=== PATIENT | male | born 1945 | race Caucasian/White ===

== ENCOUNTER 2016-06-06 14:40 | Inpatient (IN) | payer MEDICARE, OTHER ==
--- NOTE | 2016-06-06 15:31 | EDM.PDOC ---
ED HPI GENERAL MEDICAL PROBLEM - General Chief Complaint: General Stated Complaint: fever, weakness Time Seen by Provider: 06/06/16 14:50 Source of Information: Reports: Patient, Family History Limitations: Reports: No limitations - History of Present Illness INITIAL COMMENTS - FREE TEXT/NARRATIVE: Patient has had 24 hours of fevers and weakness. No pain, cough, n/v, d/c, urinary c/o. 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 Denies: confusion, chest pain, cough, cough w sputum, diaphoresis, loss of appetite, nausea/vomiting, rash, shortness of breath, syncope Headache Pain Score (Numeric/FACES): 7 - Related Data Allergies Allergy/AdvReac Type Severity Reaction Status Date / Time erythromycin base Allergy Cannot Verified 06/06/16 14:41 Remember morphine Allergy Tremors Verified 06/06/16 14:41 Home Meds: Home Meds ARIPiprazole [Abilify] 15 mg PO DAILY 06/06/16 [History] Alfuzosin [Uroxatral] 10 mg PO DAILY 06/06/16 [History] Baclofen [Lioresal] 10 mg PO TID PRN 06/06/16 [History] Escitalopram [Lexapro] 1 tab PO DAILY 06/06/16 [History] Fenofibrate Nanocrystallized [Tricor] 1 tab PO DAILY 06/06/16 [History] Hydrocodone/Acetaminophen [Hydrocodon-Acetaminophen 5-325] 1 - 2 tab PO Q4H PRN 06/06/16 [History] Lidocaine/Prilocaine [EMLA Crm] 1 dose TOP ASDIRECTED PRN 06/06/16 [History] Nitroglycerin [Nitrostat] 1 tab SL ASDIRECTED PRN 06/06/16 [History] Ondansetron HCl [Ondansetron] 8 mg PO TID PRN 06/06/16 [History] Prochlorperazine Maleate [Compazine] 10 mg PO QID PRN 06/06/16 [History] RX: Aspirin [Adult Low Dose Aspirin EC] 2 tab PO DAILY 06/06/16 [History] RX: Clopidogrel [Plavix] 75 mg PO DAILY 06/06/16 [History] RX: Nebivolol [Bystolic] 2.5 mg PO DAILY 06/06/16 [History] RX: Omeprazole 20 mg PO BEDTIME 06/06/16 [History] RX: Potassium Chloride 20 meq PO TID 06/06/16 [History] RX: fentaNYL [Duragesic] 50 mcg TRDERM Q72H 06/06/16 [History] RX: traMADol [Ultram] 1 - 2 tab PO Q4H PRN 06/06/16 [History] Sennosides/Docusate Sodium [Senokot-S Tablet] 1 tab PO BID 06/06/16 [History] Triamcinolone Acetonide [Triamcinolone Acetonide 0.1% Crm] 1 dose TOP BID [History] Triamterene/Hydrochlorothiazid [Maxzide 75 mg-50 mg Tablet] 0.5 mg PO DAILY [History] atorvaSTATin [Lipitor] 20 mg PO BEDTIME 06/06/16 [History] rOPINIRole HCl [Requip] 4 mg PO BEDTIME 06/06/16 [History] Past Medical History Oncologic (Cancer) History: Reports: Lymphoma - Past Surgical History Oncologic Surgical History: Reports: Lumpectomy Social & Family History - Tobacco Use Smoking Status *Q: Former Smoker Years of Tobacco use: 20 Packs/Tins Daily: 2 Month Tobacco Last Used: Quit many years ago Second Hand Smoke Exposure: No - Caffeine Use Caffeine Use: Reports: Coffee, Soda - Recreational Drug Use Recreational Drug Use: No ED ROS GENERAL - Review of Systems Review Of Systems: ROS reveals no pertinent complaints other than HPI. ED EXAM, GENERAL - Physical Exam Exam: See Below Exam Limited By: No limitations General Appearance: alert, WD/WN, no apparent distress Eye Exam: bilateral eye: EOMI, PERRL Ears: normal external exam, normal canal, normal TMs, hearing loss (on right ( baseline)) Ear Exam: bilateral ear: TM normal Nose: normal inspection, normal mucosa, no blood Throat/Mouth: Normal inspection, Normal oropharynx, No airway compromise Head: atraumatic, normocephalic Neck: normal inspection, supple, non-tender, full range of motion. No: lymphadenopathy (L), lymphadenopathy (R) Respiratory/Chest: no respiratory distress, lungs clear, no accessory muscle use Cardiovascular: normal peripheral pulses, regular rate, rhythm, no edema, no murmur, other (Port-a-cath present) Peripheral Pulses: 4+: dorsalis pedis (L), dorsalis pedis (R) GI/Abdominal: soft, non tender, no organomegaly, no abnormal bruit Back Exam: normal inspection, full range of motion. No: CVA tenderness (L), CVA tenderness (R) Extremities: normal inspection, normal range of motion, non-tender, no pedal edema, normal capillary refill Neurological: alert, oriented, CN II-XII intact, normal cognition, normal gait, no motor/sensory deficits Psychiatric: normal affect, normal mood Skin Exam: Warm, Dry, Intact, Normal color, No rash. No: Diaphoretic, Ecchymosis Course - Vital Signs Last Recorded V/S: Last Vital Signs Temp 39.2 C H 06/06/16 14:46 Pulse 100 06/06/16 14:46 Resp 18 06/06/16 14:46 BP 152/67 H 06/06/16 14:46 Pulse Ox 100 06/06/16 14:46 - Orders/Labs/Meds Orders: Active Orders 24 hr Category Date Time Status Chest 2V [CR] Stat Exams 06/06/16 15:21 Taken CULTURE BLOOD [BC] Stat Lab 06/06/16 15:22 Ordered CULTURE BLOOD [BC] Stat Lab 06/06/16 15:45 Received INFLUENZA A+B AG SCREEN [RM] Stat Lab 06/06/16 15:21 Ordered LACTIC ACID [CHEM] Stat Lab 06/06/16 15:21 Ordered UA W/MICROSCOPIC [URIN] Stat Lab 06/06/16 15:38 Ordered Blood Culture x2 Reflex Set [OM.PC] Stat Oth 06/06/16 15:21 Ordered Labs: Laboratory Tests 06/06/16 06/06/16 Range/Units 15:10 15:21 WBC 11.5 H (4.0-10.2) K/uL RBC 3.21 L (4.33-5.41) M/uL Hgb 9.6 L (13.1-16.8) g/dL Hct 29.4 L (39.0-49.0) % MCV 91.6 (84.0-98.0) fL MCH 29.9 (28.2-33.3) pg MCHC 32.7 (31.7-36.0) g/dL RDW 13.8 (11.2-14.1) % Plt Count 184 (150-350) K/uL Neut % (Auto) 85.8 H (45.0-80.0) % Lymph % (Auto) 5.4 L (10.0-50.0) % [place] % (Auto) 8.2 (2.0-14.0) % Eos % (Auto) 0.2 (0.0-5.0) % Baso % (Auto) 0.4 (0.0-2.0) % Neut # 9.89 H (1.40-7.00) K/uL Lymph # 0.62 (0.50-3.50) K/uL [place] # 0.95 (0.00-1.00) K/uL Eos # 0.02 (0.00-0.50) K/uL Baso # 0.05 (0.00-0.20) K/uL Sodium 134 L (136-145) mmol/L Potassium 3.3 L (3.5-5.1) mmol/L Chloride 99 (98-107) mmol/L Carbon Dioxide 24.9 (21.0-32.0) mmol/L BUN 16 (7-18) mg/dL Creatinine 1.34 H (0.51-1.17) mg/dL Est Cr Clr Drug Dosing TNP Estimated GFR (MDRD) 53 mL/min Glucose 143 H (74-106) mg/dL Calcium 8.7 (8.5-10.1) mg/dL Total Bilirubin 0.5 (0.2-1.0) mg/dL AST 10 L (15-37) U/L ALT 17 (12-78) U/L Alkaline Phosphatase 53 (46-116) IU/L Total Protein 6.8 (6.4-8.2) g/dL Albumin 3.1 L (3.4-5.0) g/dL Departure - Departure Time of Disposition: 15:51 Disposition: Admitted As Inpatient 68 Condition: fair Clinical Impression: Pneumonia Forms: ED Department Discharge - Problem List Review Problem List Initiated/Reviewed/Updated: No - My Orders Last 24 Hours: My Active Orders 06/06/16 15:21 Chest 2V [CR] Stat INFLUENZA A+B AG SCREEN [RM] Stat LACTIC ACID [CHEM] Stat Blood Culture x2 Reflex Set [OM.PC] Stat 06/06/16 15:22 CULTURE BLOOD [BC] Stat 06/06/16 15:38 UA W/MICROSCOPIC [URIN] Stat 06/06/16 15:45 CULTURE BLOOD [BC] Stat - Assessment/Plan Last 24 Hours: My Active Orders 06/06/16 15:21 Chest 2V [CR] Stat INFLUENZA A+B AG SCREEN [RM] Stat LACTIC ACID [CHEM] Stat Blood Culture x2 Reflex Set [OM.PC] Stat 06/06/16 15:22 CULTURE BLOOD [BC] Stat 06/06/16 15:38 UA W/MICROSCOPIC [URIN] Stat 06/06/16 15:45 CULTURE BLOOD [BC] Stat Assessment:: Right Upper lobe Pneumonia Recent completion of Chemotherapy Stable VS Plan: Admit as inpatient IV antibiotics Supportive care
[2016-06-06 15:42] LABS: CHLORIDE,CL 99 mmol/L (98-107); SODIUM,NA 134 mmol/L (136-145)
[2016-06-06] MEDS ORDERED: Cefepime 2 GM in Sodium Chloride 0.9% 100 ML IV SCH (16:07)
[2016-06-06] MEDS: Cefepime 2 GM in Sodium Chloride 0.9% 100 ML IV SCH (16:18)
[2016-06-06] MEDS ORDERED: Acetaminophen 325 MG Tab PO PRN (17:01)
[2016-06-06] MEDS ORDERED: Prochlorperazine 5 MG Tab PO PRN (17:55)
[2016-06-06] MEDS ORDERED: Ondansetron 4 MG Tab.DIS PO PRN (17:55)
[2016-06-06] MEDS ORDERED: Lidocaine/Prilocaine 2.5-2.5% Crm 5 GM Tube TOP PRN (17:55)
[2016-06-06] MEDS ORDERED: traMADol 50 MG Tab PO PRN (17:55)
[2016-06-06] MEDS ORDERED: Acetaminophen/HYDROcodone 325-5 MG Tab PO PRN (17:55)
[2016-06-06] MEDS ORDERED: Baclofen 10 MG Tab PO PRN (17:55)
[2016-06-06] MEDS ORDERED: Nitroglycerin 0.4 MG Tab.SL SL PRN (17:55)
[2016-06-06] MEDS: Sodium Chloride 0.9% 1,000 ML IV SCH (19:14)
[2016-06-06] MEDS: Potassium Chloride 20 MEQ Tab.ER PO SCH (19:15)
[2016-06-06] MEDS: Omeprazole 20 MG Cap.CR PO SCH (19:15)
[2016-06-06] MEDS: rOPINIRole 1 MG Tab PO SCH (19:15)
[2016-06-06] MEDS: Triamcinolone Acetonide 0.1% Crm 15 GM Tube TOP SCH (19:19)
[2016-06-07] MEDS ORDERED: Cefepime 2 GM in Sodium Chloride 0.9% 100 ML IV SCH ×2
[2016-06-07] MEDS: Cefepime 2 GM in Sodium Chloride 0.9% 100 ML IV SCH ×3 (00:38→16:48)
[2016-06-07] MEDS: Sodium Chloride 0.9% 1,000 ML IV SCH ×3 (02:24→16:24)
[2016-06-07] MEDS: Acetaminophen 325 MG Tab PO PRN ×3 (04:27→20:17)
[2016-06-07] MEDS: Aspirin 81 MG Tab.EC PO SCH (08:18)
[2016-06-07] MEDS: Clopidogrel 75 MG Tab PO SCH (08:18)
[2016-06-07] MEDS: ARIPiprazole 10 MG Tab PO SCH (08:18)
[2016-06-07] MEDS: Alfuzosin 10 MG Tab.ER PO SCH (08:18)
[2016-06-07] MEDS: Potassium Chloride 20 MEQ Tab.ER PO SCH ×3 (08:18→17:42)
[2016-06-07] MEDS: Fenofibrate Nanocrystallized 145 MG Tab PO SCH (08:18)
[2016-06-07] MEDS: Escitalopram 20 MG Tab PO SCH (08:18)
[2016-06-07] MEDS: Triamcinolone Acetonide 0.1% Crm 15 GM Tube TOP SCH ×2 (08:19→18:28)
[2016-06-07] MEDS: Hydrochlorothiazide/Triamterene 50-75 MG Tab PO SCH (08:19)
--- NOTE | 2016-06-07 16:55 | PCM.PN ---
- General Info Date of Service: 06/07/16 Admission Dx/Problem (Free Text): Admitted 06/06 for right upper lobe pneumonia with profound weakness. 2 weeks s/ p last dose of chemotherapy Functional Status: Reports: pain controlled, tolerating diet, ambulating (Able to walk on own today) - Review of Systems General: Reports: No Symptoms, Weakness (improved). Denies: Fever, Chills HEENT: Reports: no symptoms Pulmonary: Reports: no symptoms Cardiovascular: Reports: No Symptoms Gastrointestinal: Reports: No symptoms Genitourinary: Reports: no symptoms Musculoskeletal: Reports: no symptoms Skin: Reports: no symptoms Neurological: Reports: No Symptoms Psychiatric: Reports: no symptoms - Patient Data Vitals - most recent: Last Vital Signs Temp 37.4 C 06/07/16 16:00 Pulse 84 06/07/16 16:00 Resp 18 06/07/16 16:00 BP 114/61 06/07/16 16:00 Pulse Ox 96 06/07/16 16:00 Weight - most recent: 86.409 kg I&O - last 24 hours: Intake & Output 06/07/16 06/07/16 06/07/16 06:59 14:59 22:59 Intake Total 1822 480 Output Total 750 575 Balance 1072 -95 Lab Results last 24 hrs: Laboratory Results - last 24 hr 06/07/16 06/07/16 Range/Units 06:55 06:55 WBC 10.8 H (4.0-10.2) K/uL RBC 3.10 L (4.33-5.41) M/uL Hgb 9.2 L (13.1-16.8) g/dL Hct 28.2 L (39.0-49.0) % MCV 91.0 (84.0-98.0) fL MCH 29.7 (28.2-33.3) pg MCHC 32.6 (31.7-36.0) g/dL RDW 13.7 (11.2-14.1) % Plt Count 205 (150-350) K/uL Neut % (Auto) 84.3 H (45.0-80.0) % Lymph % (Auto) 6.8 L (10.0-50.0) % [place] % (Auto) 8.1 (2.0-14.0) % Eos % (Auto) 0.3 (0.0-5.0) % Baso % (Auto) 0.5 (0.0-2.0) % Neut # 9.09 H (1.40-7.00) K/uL Lymph # 0.73 (0.50-3.50) K/uL [place] # 0.87 (0.00-1.00) K/uL Eos # 0.03 (0.00-0.50) K/uL Baso # 0.05 (0.00-0.20) K/uL Sodium 137 (136-145) mmol/L Potassium 3.4 L (3.5-5.1) mmol/L Chloride 101 (98-107) mmol/L Carbon Dioxide 25.0 (21.0-32.0) mmol/L BUN 15 (7-18) mg/dL Creatinine 1.23 H (0.51-1.17) mg/dL Est Cr Clr Drug Dosing 58.67 mL/min Estimated GFR (MDRD) 58 mL/min Glucose 104 (74-106) mg/dL Calcium 8.4 L (8.5-10.1) mg/dL Total Bilirubin 0.4 (0.2-1.0) mg/dL AST 10 L (15-37) U/L ALT 15 (12-78) U/L Alkaline Phosphatase 49 (46-116) IU/L Total Protein 6.5 (6.4-8.2) g/dL Albumin 2.8 L (3.4-5.0) g/dL Med Orders - Current: Current Medications Acetaminophen (Tylenol) 650 mg PO Q6H PRN PRN Reason: Temperature Last Admin: 06/07/16 11:40 Dose: 650 mg Acetaminophen/Hydrocodone Bitart ([place] 325-5 Mg) 1 tab PO Q4H PRN PRN Reason: Pain Last Admin: 06/06/16 20:04 Dose: 1 tab Alfuzosin HCl (Uroxatral) 10 mg PO DAILY [facility] Last Admin: 06/07/16 08:18 Dose: 10 mg Aripiprazole (Abilify) 15 mg PO DAILY [facility] Last Admin: 06/07/16 08:18 Dose: 15 mg Aspirin (Halfprin) 162 mg PO DAILY [facility] Last Admin: 06/07/16 08:18 Dose: 162 mg Baclofen (Lioresal) 10 mg PO TID PRN PRN Reason: Spasms Clopidogrel Bisulfate (Plavix) 75 mg PO DAILY [facility] Last Admin: 06/07/16 08:18 Dose: 75 mg Escitalopram Oxalate (Lexapro) 20 mg PO DAILY [facility] Last Admin: 06/07/16 08:18 Dose: 20 mg Fenofibrate (Tricor) 145 mg PO DAILY [facility] Last Admin: 06/07/16 08:18 Dose: 145 mg Fentanyl (Duragesic) 50 mcg TRDERM Q72H [facility] Cefepime HCl 2 gm/ Sodium (Chloride) 100 mls @ 200 mls/hr IV Q8HR [facility] Last Admin: 06/07/16 16:48 Dose: 200 mls/hr Sodium Chloride (Normal Saline) 1,000 mls @ 150 mls/hr IV ASDIRECTED [facility] Last Admin: 06/07/16 16:24 Dose: 150 mls/hr Lidocaine/Prilocaine (Emla Crm) 0 gm TOP ASDIRECTED PRN PRN Reason: PRIOR TO PORT ACCESS Nebivolol (Bystolic) 2.5 mg PO DAILY [facility] Last Admin: 06/07/16 08:18 Dose: 2.5 mg Nitroglycerin (Nitrostat) 0.4 mg SL ASDIRECTED PRN PRN Reason: Chest Pain Omeprazole (Omeprazole) 20 mg PO BEDTIME [facility] Last Admin: 06/06/16 19:15 Dose: 20 mg Ondansetron HCl (Zofran Odt) 8 mg PO TID PRN PRN Reason: Nausea Potassium Chloride (Klor-Con M20) 20 meq PO TID [facility] Last Admin: 06/07/16 11:41 Dose: 20 meq Prochlorperazine Maleate (Compazine) 10 mg PO QID PRN PRN Reason: Nausea Ropinirole HCl (Requip) 4 mg PO BEDTIME [facility] Last Admin: 06/06/16 19:15 Dose: 4 mg Senna/Docusate Sodium (Senna Plus) 1 tab PO BID [facility] Last Admin: 06/07/16 08:18 Dose: 1 tab Tramadol HCl (Ultram) 100 mg PO Q4H PRN PRN Reason: Pain Triamcinolone Acetonide (Triamcinolone Acetonide 0.1% Crm) 0 gm TOP BID [facility] Last Admin: 06/07/16 08:19 Dose: Not Given Triamterene/HCTZ (Maxzide 50-75 Mg) 0.5 each PO DAILY [facility] Last Admin: 06/07/16 08:19 Dose: 0.5 each Discontinued Medications Acetaminophen (Tylenol) 650 mg PO Q4H PRN PRN Reason: Fever/Pain Last Admin: 06/06/16 17:44 Dose: 650 mg Cefepime HCl 2 gm/ Sodium (Chloride) 100 mls @ 200 mls/hr IV Q8HR [facility] Cefepime HCl 2 gm/ Sodium (Chloride) 100 mls @ 200 mls/hr IV Q8HR [facility] - Exam General: alert, oriented HEENT: Pupils equal, EOMI Neck: supple Lungs: Clear to auscultation, Normal respiratory effort Cardiovascular: Regular Rate, Regular Rhythm Abdomen: soft, no tenderness, no distension Back Exam: normal inspection Extremities: no edema Skin: warm, dry, intact Neurological: no new focal deficit Psy/Mental Status: alert, normal affect, normal mood - Problem List Review Problem List Initiated/Reviewed/Updated: No - My Orders Last 24 Hours: My Active Orders 06/06/16 16:13 Resuscitation Status Routine 06/06/16 16:16 Cefepime [Maxipime] 2 gm Sodium Chloride 0.9% [Normal Saline] 100 ml IV Q8HR 06/06/16 16:43 Antiembolic Devices [RC] 08,20 Antiembolic Hose [OM.PC] Routine 06/06/16 16:44 Up With Assistance [RC] ASDIRECTED 06/06/16 17:55 Intake and Output [RC] QSHIFT Up With Assistance [RC] ASDIRECTED Up to Chair [RC] ASDIRECTED Vital Signs [RC] Q4HR Acetaminophen [Tylenol] 650 mg PO Q6H PRN Acetaminophen/HYDROcodone [[place] 325-5 MG] 1 tab PO Q4H PRN Baclofen [Lioresal] 10 mg PO TID PRN Lidocaine/Prilocaine [EMLA Crm] 0 gm TOP ASDIRECTED PRN Nitroglycerin [Nitrostat] 0.4 mg SL ASDIRECTED PRN Ondansetron [Zofran ODT] 8 mg PO TID PRN Prochlorperazine [Compazine] 10 mg PO QID PRN Sodium Chloride 0.9% [Normal Saline] 1,000 ml IV ASDIRECTED traMADol [Ultram] 100 mg PO Q4H PRN 06/06/16 18:00 Docusate Sodium/Sennosides [Senna Plus] 1 tab PO BID Potassium Chloride [Klor-Con M20] 20 meq PO TID Triamcinolone Acetonide [Triamcinolone Acetonide 0.1% Crm] 0 gm TOP BID 06/06/16 20:00 Omeprazole 20 mg PO BEDTIME rOPINIRole [Requip] 4 mg PO BEDTIME 06/06/16 Dinner Regular Diet [DIET] Regular Diet [DIET] 06/07/16 08:00 ARIPiprazole [Abilify] 15 mg PO DAILY Alfuzosin [Uroxatral] 10 mg PO DAILY Aspirin [Halfprin] 162 mg PO DAILY Clopidogrel [Plavix] 75 mg PO DAILY Escitalopram [Lexapro] 20 mg PO DAILY Fenofibrate Nanocrystallized [Tricor] 145 mg PO DAILY HCTZ/Triamterene [Maxzide 50-75 MG] 0.5 each PO DAILY Nebivolol [Bystolic] 2.5 mg PO DAILY 06/07/16 20:00 fentaNYL [Duragesic] 50 mcg TRDERM Q72H 06/08/16 07:00 CBC WITH AUTO DIFF [HEME] DAILY CMP [COMPREHENSIVE METABOLIC PN,CMP] [CHEM] DAILY 06/09/16 07:00 CBC WITH AUTO DIFF [HEME] DAILY CMP [COMPREHENSIVE METABOLIC PN,CMP] [CHEM] DAILY - Assessment Assessment:: Pneumonia - Weakness improved, WBC and differential improved, no fevers today. Cult neg at day 1 - Plan Plan:: 1. Continue current care, step down VS frequency, change fluids to maintenance 2. Anticipate d/c in 2 days.
[2016-06-07] MEDS: D5 1/2 NS w/ 20 mEq/L KCl 1,000 ML IV SCH (17:43)
[2016-06-07] MEDS ORDERED: fentaNYL 50 MCG/HR Transdermal Patch TRDERM SCH (20:00)
[2016-06-07] MEDS: Temazepam 15 MG Cap PO PRN (20:18)
[2016-06-07] MEDS: rOPINIRole 1 MG Tab PO SCH (20:18)
[2016-06-07] MEDS: Omeprazole 20 MG Cap.CR PO SCH (20:18)
[2016-06-08] MEDS: Cefepime 2 GM in Sodium Chloride 0.9% 100 ML IV SCH ×4 (00:54→23:16)
[2016-06-08] MEDS: D5 1/2 NS w/ 20 mEq/L KCl 1,000 ML IV SCH ×2 (07:03→17:38)
[2016-06-08 07:52] LABS: CHLORIDE,CL 104 mmol/L (98-107); SODIUM,NA 137 mmol/L (136-145)
[2016-06-08] MEDS: Clopidogrel 75 MG Tab PO SCH (08:24)
[2016-06-08] MEDS: ARIPiprazole 10 MG Tab PO SCH (08:24)
[2016-06-08] MEDS: Potassium Chloride 20 MEQ Tab.ER PO SCH ×3 (08:25→17:38)
[2016-06-08] MEDS: Aspirin 81 MG Tab.EC PO SCH (08:25)
[2016-06-08] MEDS: Alfuzosin 10 MG Tab.ER PO SCH (08:26)
[2016-06-08] MEDS: Escitalopram 20 MG Tab PO SCH (08:27)
[2016-06-08] MEDS: Hydrochlorothiazide/Triamterene 50-75 MG Tab PO SCH (08:27)
[2016-06-08] MEDS: Fenofibrate Nanocrystallized 145 MG Tab PO SCH (08:27)
[2016-06-08] MEDS: Triamcinolone Acetonide 0.1% Crm 15 GM Tube TOP SCH ×2 (08:30→17:42)
[2016-06-08] MEDS: Acetaminophen 325 MG Tab PO PRN ×2 (12:02→23:21)
[2016-06-08] MEDS ORDERED: Cyanocobalamin (Vitamin B12) 1,000 MCG/ML SDV IM ONE ×2 (12:39→16:00)
--- NOTE | 2016-06-08 12:45 | PCM.PN ---
- General Info Date of Service: 06/08/16 Admission Dx/Problem (Free Text): Admitted 06/06 for right upper lobe pneumonia with profound weakness. 2 weeks s/ p last dose of chemotherapy Functional Status: Reports: pain controlled - Review of Systems General: Reports: No Symptoms (weakness resolved) HEENT: Reports: no symptoms Pulmonary: Reports: no symptoms Cardiovascular: Reports: No Symptoms Gastrointestinal: Reports: No symptoms Genitourinary: Reports: no symptoms Musculoskeletal: Reports: no symptoms Skin: Reports: no symptoms Neurological: Reports: No Symptoms Psychiatric: Reports: no symptoms - Patient Data Vitals - most recent: Last Vital Signs Temp 36.8 C 06/08/16 08:00 Pulse 89 06/08/16 08:26 Resp 18 06/08/16 08:00 BP 118/71 06/08/16 08:26 Pulse Ox 97 06/08/16 08:00 Weight - most recent: 86.409 kg I&O - last 24 hours: Intake & Output 06/07/16 06/08/16 06/08/16 22:59 06:59 14:59 Intake Total 480 2671 220 Balance 480 2671 220 Lab Results last 24 hrs: Laboratory Results - last 24 hr 06/08/16 06/08/16 Range/Units 07:15 07:15 WBC 6.4 (4.0-10.2) K/uL RBC 2.85 L (4.33-5.41) M/uL Hgb 8.4 L (13.1-16.8) g/dL Hct 25.9 L (39.0-49.0) % MCV 90.9 (84.0-98.0) fL MCH 29.5 (28.2-33.3) pg MCHC 32.4 (31.7-36.0) g/dL RDW 13.5 (11.2-14.1) % Plt Count 228 (150-350) K/uL Neut % (Auto) 73.6 (45.0-80.0) % Lymph % (Auto) 12.1 (10.0-50.0) % [place] % (Auto) 11.2 (2.0-14.0) % Eos % (Auto) 2.2 (0.0-5.0) % Baso % (Auto) 0.9 (0.0-2.0) % Neut # (Auto) 4.74 (1.40-7.00) K/uL Lymph # (Auto) 0.78 (0.50-3.50) K/uL [place] # (Auto) 0.72 (0.00-1.00) K/uL Eos # (Auto) 0.14 (0.00-0.50) K/uL Baso # (Auto) 0.06 (0.00-0.20) K/uL Sodium 137 (136-145) mmol/L Potassium 3.7 (3.5-5.1) mmol/L Chloride 104 (98-107) mmol/L Carbon Dioxide 25.0 (21.0-32.0) mmol/L BUN 13 (7-18) mg/dL Creatinine 1.09 (0.51-1.17) mg/dL Est Cr Clr Drug Dosing 66.20 mL/min Estimated GFR (MDRD) > 60 mL/min Glucose 105 (74-106) mg/dL Calcium 8.6 (8.5-10.1) mg/dL Total Bilirubin 0.2 (0.2-1.0) mg/dL AST 15 (15-37) U/L ALT 18 (12-78) U/L Alkaline Phosphatase 39 L (46-116) IU/L Total Protein 6.2 L (6.4-8.2) g/dL Albumin 2.5 L (3.4-5.0) g/dL Med Orders - Current: Current Medications Acetaminophen (Tylenol) 650 mg PO Q6H PRN PRN Reason: Temperature Last Admin: 06/08/16 12:02 Dose: 650 mg Acetaminophen/Hydrocodone Bitart ([place] 325-5 Mg) 1 tab PO Q4H PRN PRN Reason: Pain Last Admin: 06/06/16 20:04 Dose: 1 tab Alfuzosin HCl (Uroxatral) 10 mg PO DAILY [facility] Last Admin: 06/08/16 08:26 Dose: 10 mg Aripiprazole (Abilify) 15 mg PO DAILY [facility] Last Admin: 06/08/16 08:24 Dose: 15 mg Aspirin (Halfprin) 162 mg PO DAILY [facility] Last Admin: 06/08/16 08:25 Dose: 162 mg Baclofen (Lioresal) 10 mg PO TID PRN PRN Reason: Spasms Clopidogrel Bisulfate (Plavix) 75 mg PO DAILY [facility] Last Admin: 06/08/16 08:24 Dose: 75 mg Cyanocobalamin (Vitamin B12) 1,000 mcg IM ONETIME ONE Stop: 06/08/16 12:40 Escitalopram Oxalate (Lexapro) 20 mg PO DAILY [facility] Last Admin: 06/08/16 08:27 Dose: 20 mg Fenofibrate (Tricor) 145 mg PO DAILY [facility] Last Admin: 06/08/16 08:27 Dose: 145 mg Fentanyl (Duragesic) 50 mcg TRDERM Q72H [facility] Last Admin: 06/07/16 20:20 Dose: 50 mcg Cefepime HCl 2 gm/ Sodium (Chloride) 100 mls @ 200 mls/hr IV Q8HR [facility] Last Admin: 06/08/16 08:22 Dose: 200 mls/hr Potassium Chloride/Dextrose/Sod Cl (D5 1/2 Ns W/ 20 Meq/L Kcl) 1,000 mls @ 75 mls/hr IV ASDIRECTED [facility] Last Admin: 06/08/16 07:03 Dose: 75 mls/hr Lidocaine/Prilocaine (Emla Crm) 0 gm TOP ASDIRECTED PRN PRN Reason: PRIOR TO PORT ACCESS Nebivolol (Bystolic) 2.5 mg PO DAILY [facility] Last Admin: 06/08/16 08:26 Dose: 2.5 mg Nitroglycerin (Nitrostat) 0.4 mg SL ASDIRECTED PRN PRN Reason: Chest Pain Omeprazole (Omeprazole) 20 mg PO BEDTIME [facility] Last Admin: 06/07/16 20:18 Dose: 20 mg Ondansetron HCl (Zofran Odt) 8 mg PO TID PRN PRN Reason: Nausea Potassium Chloride (Klor-Con M20) 20 meq PO TID [facility] Last Admin: 06/08/16 11:57 Dose: 20 meq Prochlorperazine Maleate (Compazine) 10 mg PO QID PRN PRN Reason: Nausea Ropinirole HCl (Requip) 4 mg PO BEDTIME [facility] Last Admin: 06/07/16 20:18 Dose: 4 mg Senna/Docusate Sodium (Senna Plus) 1 tab PO BID [facility] Last Admin: 06/08/16 08:25 Dose: 1 tab Temazepam (Restoril) 15 mg PO BEDTIME PRN PRN Reason: Insomnia Last Admin: 06/07/16 20:18 Dose: 15 mg Tramadol HCl (Ultram) 100 mg PO Q4H PRN PRN Reason: Pain Triamcinolone Acetonide (Triamcinolone Acetonide 0.1% Crm) 0 gm TOP BID [facility] Last Admin: 06/08/16 08:30 Dose: Not Given Triamterene/HCTZ (Maxzide 50-75 Mg) 0.5 each PO DAILY [facility] Last Admin: 06/08/16 08:27 Dose: 0.5 each Discontinued Medications Acetaminophen (Tylenol) 650 mg PO Q4H PRN PRN Reason: Fever/Pain Last Admin: 06/06/16 17:44 Dose: 650 mg Cefepime HCl 2 gm/ Sodium (Chloride) 100 mls @ 200 mls/hr IV Q8HR [facility] Cefepime HCl 2 gm/ Sodium (Chloride) 100 mls @ 200 mls/hr IV Q8HR [facility] Sodium Chloride (Normal Saline) 1,000 mls @ 150 mls/hr IV ASDIRECTED [facility] Last Admin: 06/07/16 16:24 Dose: 150 mls/hr - Exam General: alert, oriented HEENT: Pupils equal, EOMI Neck: supple Lungs: Clear to auscultation, Normal respiratory effort Cardiovascular: Regular Rate, Regular Rhythm Abdomen: soft, no tenderness Back Exam: normal inspection Extremities: no edema Skin: warm, dry, intact Neurological: no new focal deficit Psy/Mental Status: alert, normal affect, normal mood - Problem List Review Problem List Initiated/Reviewed/Updated: No - My Orders Last 24 Hours: My Active Orders 06/07/16 17:00 Activity as Tolerated [RC] .Routine D5 1/2 NS w/ 20 mEq/L KCl 1,000 ml IV ASDIRECTED 06/07/16 18:01 Consult to Physical Therapy [PT Evaluation and Treatment] [CONS] Routine 06/07/16 18:03 Consult to Occupational Therapy [OT Evaluation and Treatment] [CONS] Routine 06/07/16 18:55 Temazepam [Restoril] 15 mg PO BEDTIME PRN 06/07/16 20:00 fentaNYL [Duragesic] 50 mcg TRDERM Q72H 06/08/16 12:39 Cyanocobalamin (Vitamin B12) [Vitamin B12] 1,000 mcg IM ONETIME ONE 06/09/16 07:00 CBC WITH AUTO DIFF [HEME] DAILY CMP [COMPREHENSIVE METABOLIC PN,CMP] [CHEM] DAILY IRON/TIBC [CHEM] Routine - Assessment Assessment:: Pneumonia - Weakness improved, WBC and differential improved, no fevers today. Cult neg at day 1 06/08/16 Pneumonia - Weakness resolved, WBC normal. One fever in 24 hours (1999 yesterday). Cult Neg Anemia - Hbg 8.4 this AM down from 9.6 on admission. NormoChromic Normocytic. - Plan Plan:: 1. Iron studies, B-12 IM shot today, recheck Hbg in AM 2. Possible D/C tomorrow if afebrile and Hgb is stable
[2016-06-08] MEDS: Omeprazole 20 MG Cap.CR PO SCH (19:58)
[2016-06-08] MEDS: rOPINIRole 1 MG Tab PO SCH (19:58)
[2016-06-08] MEDS: Temazepam 15 MG Cap PO PRN (20:02)
[2016-06-09] MEDS: D5 1/2 NS w/ 20 mEq/L KCl 1,000 ML IV SCH (06:28)
[2016-06-09 07:53] LABS: CHLORIDE,CL 107 mmol/L (98-107); SODIUM,NA 141 mmol/L (136-145)
[2016-06-09] MEDS: Cefepime 2 GM in Sodium Chloride 0.9% 100 ML IV SCH (08:17)
[2016-06-09] MEDS: ARIPiprazole 10 MG Tab PO SCH (08:18)
[2016-06-09] MEDS: Aspirin 81 MG Tab.EC PO SCH (08:18)
[2016-06-09] MEDS: Hydrochlorothiazide/Triamterene 50-75 MG Tab PO SCH (08:19)
[2016-06-09] MEDS: Clopidogrel 75 MG Tab PO SCH (08:20)
[2016-06-09] MEDS: Fenofibrate Nanocrystallized 145 MG Tab PO SCH (08:20)
[2016-06-09] MEDS: Escitalopram 20 MG Tab PO SCH (08:20)
[2016-06-09] MEDS: Alfuzosin 10 MG Tab.ER PO SCH (08:20)
[2016-06-09] MEDS: Potassium Chloride 20 MEQ Tab.ER PO SCH (08:21)
[2016-06-09] MEDS: Triamcinolone Acetonide 0.1% Crm 15 GM Tube TOP SCH ×2 (08:22→08:30)
[2016-06-09 08:23] VITALS: BP 120/71
--- NOTE | 2016-06-09 10:22 | PCM.DCSUM1 ---
Discharge Summary - Hospital Course HPI Initial Comments: Admitted 3 days ago with Pneumonia, profound weakness. - Discharge Data Discharge Date: 06/09/16 Discharge Disposition: Home, Self-Care 01 Condition: Good - Patient Summary/Data Consults: Consultations 06/07/16 18:01 Consult to Physical Therapy [PT Evaluation and Treatment] [CONS] Routine 06/07/16 18:03 Consult to Occupational Therapy [OT Evaluation and Treatment] [CONS] Routine Hospital Course: Improved rapidly. No complications. Weakness resolved. WBC normalized. Last fever two evenings ago. Hgb stable for last 24 hours - Discharge Plan Prescriptions/Med Rec: Cefprozil 500 mg PO BID #20 tablet Ferrous Sulfate [Slow Fe] 142 mg PO DAILY #30 tablet.er Levofloxacin [Levaquin] 500 mg PO Q24H #10 tablet Home Medications: Home Meds ARIPiprazole [Abilify] 15 mg PO DAILY 06/06/16 [History] Alfuzosin [Uroxatral] 10 mg PO DAILY 06/06/16 [History] Aspirin [Adult Low Dose Aspirin EC] 2 tab PO DAILY 06/06/16 [History] Baclofen [Lioresal] 10 mg PO TID PRN 06/06/16 [History] Clopidogrel [Plavix] 75 mg PO DAILY 06/06/16 [History] Escitalopram [Lexapro] 1 tab PO DAILY 06/06/16 [History] Fenofibrate Nanocrystallized [Tricor] 1 tab PO DAILY 06/06/16 [History] Hydrocodone/Acetaminophen [Hydrocodon-Acetaminophen 5-325] 1 - 2 tab PO Q4H PRN 06/06/16 [History] Lidocaine/Prilocaine [EMLA Crm] 1 dose TOP ASDIRECTED PRN 06/06/16 [History] Nebivolol [Bystolic] 2.5 mg PO DAILY 06/06/16 [History] Nitroglycerin [Nitrostat] 1 tab SL ASDIRECTED PRN 06/06/16 [History] Omeprazole 20 mg PO BEDTIME 06/06/16 [History] Ondansetron HCl [Ondansetron] 8 mg PO TID PRN 06/06/16 [History] Potassium Chloride 20 meq PO TID 06/06/16 [History] Prochlorperazine Maleate [Compazine] 10 mg PO QID PRN 06/06/16 [History] Sennosides/Docusate Sodium [Senokot-S Tablet] 1 tab PO BID 06/06/16 [History] Triamcinolone Acetonide [Triamcinolone Acetonide 0.1% Crm] 1 dose TOP BID [History] Triamterene/Hydrochlorothiazid [Maxzide 75 mg-50 mg Tablet] 0.5 mg PO DAILY [History] atorvaSTATin [Lipitor] 20 mg PO BEDTIME 06/06/16 [History] fentaNYL [Duragesic] 50 mcg TRDERM Q72H 06/06/16 [History] rOPINIRole HCl [Requip] 4 mg PO BEDTIME 06/06/16 [History] traMADol [Ultram] 1 - 2 tab PO Q4H PRN 06/06/16 [History] Cefprozil 500 mg PO BID #20 tablet 06/09/16 [Rx] Ferrous Sulfate [Slow Fe] 142 mg PO DAILY #30 tablet.er 06/09/16 [Rx] Levofloxacin [Levaquin] 500 mg PO Q24H #10 tablet 06/09/16 [Rx] Patient Handouts: Cefepime injection, Community-Acquired Pneumonia, Adult, Easy -to-Read Forms: ED Department Discharge Referrals: PCP,None [Primary Care Provider] - - Discharge Summary/Plan Comment DC Time >30 min.: Yes - General Info Date of Service: 06/09/16 Admission Dx/Problem (Free Text: Admitted 06/06 for right upper lobe pneumonia with profound weakness. 2 weeks s/ p last dose of chemotherapy Functional Status: Reports: pain controlled - Review of Systems General: Reports: No Symptoms HEENT: Reports: no symptoms Pulmonary: Reports: no symptoms Cardiovascular: Reports: No Symptoms Gastrointestinal: Reports: No symptoms Genitourinary: Reports: no symptoms Musculoskeletal: Reports: no symptoms Skin: Reports: no symptoms Neurological: Reports: No Symptoms Psychiatric: Reports: no symptoms - Patient Data Vitals - Most Recent: Last Vital Signs Temp 36.9 C 06/09/16 08:00 Pulse 84 06/09/16 08:21 Resp 18 06/09/16 08:00 BP 120/71 06/09/16 08:21 Pulse Ox 100 06/09/16 08:00 Weight - Most Recent: 86.409 kg I&O - Last 24 hours: Intake & Output 06/08/16 06/09/16 06/09/16 22:59 06:59 14:59 Intake Total 1304 963 Balance 1304 963 Lab Results - Last 24 hrs: Laboratory Results - last 24 hr 06/09/16 06/09/16 06/09/16 Range/Units 06:55 06:55 06:55 WBC 5.8 (4.0-10.2) K/uL RBC 2.96 L (4.33-5.41) M/uL Hgb 8.5 L (13.1-16.8) g/dL Hct 26.8 L (39.0-49.0) % MCV 90.5 (84.0-98.0) fL MCH 28.7 (28.2-33.3) pg MCHC 31.7 (31.7-36.0) g/dL RDW 13.2 (11.2-14.1) % Plt Count 281 (150-350) K/uL Neut % (Auto) 70.7 (45.0-80.0) % Lymph % (Auto) 16.0 (10.0-50.0) % [place] % (Auto) 9.4 (2.0-14.0) % Eos % (Auto) 2.3 (0.0-5.0) % Baso % (Auto) 1.6 (0.0-2.0) % Neut # (Auto) 4.08 (1.40-7.00) K/uL Lymph # (Auto) 0.92 (0.50-3.50) K/uL [place] # (Auto) 0.54 (0.00-1.00) K/uL Eos # (Auto) 0.13 (0.00-0.50) K/uL Baso # (Auto) 0.09 (0.00-0.20) K/uL Sodium 141 (136-145) mmol/L Potassium 4.2 (3.5-5.1) mmol/L Chloride 107 (98-107) mmol/L Carbon Dioxide 24.9 (21.0-32.0) mmol/L BUN 12 (7-18) mg/dL Creatinine 1.04 (0.51-1.17) mg/dL Est Cr Clr Drug Dosing 69.39 mL/min Estimated GFR (MDRD) > 60 mL/min Glucose 106 (74-106) mg/dL Calcium 8.9 (8.5-10.1) mg/dL Iron 46 L (50-175) ug/dL TIBC 174 L (250-450) ug/dL % Saturation [id number] Total Bilirubin 0.2 (0.2-1.0) mg/dL AST 18 (15-37) U/L ALT 27 (12-78) U/L Alkaline Phosphatase 40 L (46-116) IU/L Total Protein 6.4 (6.4-8.2) g/dL Albumin 2.6 L (3.4-5.0) g/dL Med Orders - Current: Current Medications Acetaminophen (Tylenol) 650 mg PO Q6H PRN PRN Reason: Temperature Last Admin: 06/08/16 23:21 Dose: 650 mg Acetaminophen/Hydrocodone Bitart ([place] 325-5 Mg) 1 tab PO Q4H PRN PRN Reason: Pain Last Admin: 06/06/16 20:04 Dose: 1 tab Alfuzosin HCl (Uroxatral) 10 mg PO DAILY [facility] Last Admin: 06/09/16 08:20 Dose: 10 mg Aripiprazole (Abilify) 15 mg PO DAILY [facility] Last Admin: 06/09/16 08:18 Dose: 15 mg Aspirin (Halfprin) 162 mg PO DAILY [facility] Last Admin: 06/09/16 08:18 Dose: 162 mg Baclofen (Lioresal) 10 mg PO TID PRN PRN Reason: Spasms Clopidogrel Bisulfate (Plavix) 75 mg PO DAILY [facility] Last Admin: 06/09/16 08:20 Dose: 75 mg Escitalopram Oxalate (Lexapro) 20 mg PO DAILY [facility] Last Admin: 06/09/16 08:20 Dose: 20 mg Fenofibrate (Tricor) 145 mg PO DAILY [facility] Last Admin: 06/09/16 08:20 Dose: 145 mg Fentanyl (Duragesic) 50 mcg TRDERM Q72H [facility] Last Admin: 06/07/16 20:20 Dose: 50 mcg Cefepime HCl 2 gm/ Sodium (Chloride) 100 mls @ 200 mls/hr IV Q8HR [facility] Last Admin: 06/09/16 08:17 Dose: 200 mls/hr Potassium Chloride/Dextrose/Sod Cl (D5 1/2 Ns W/ 20 Meq/L Kcl) 1,000 mls @ 75 mls/hr IV ASDIRECTED [facility] Last Admin: 06/09/16 06:28 Dose: 75 mls/hr Lidocaine/Prilocaine (Emla Crm) 0 gm TOP ASDIRECTED PRN PRN Reason: PRIOR TO PORT ACCESS Miscellaneous Information (Remove Patch) 1 ea TRDERM Q72H [facility] Nebivolol (Bystolic) 2.5 mg PO DAILY [facility] Last Admin: 06/09/16 08:21 Dose: 2.5 mg Nitroglycerin (Nitrostat) 0.4 mg SL ASDIRECTED PRN PRN Reason: Chest Pain Omeprazole (Omeprazole) 20 mg PO BEDTIME [facility] Last Admin: 06/08/16 19:58 Dose: 20 mg Ondansetron HCl (Zofran Odt) 8 mg PO TID PRN PRN Reason: Nausea Potassium Chloride (Klor-Con M20) 20 meq PO TID [facility] Last Admin: 06/09/16 08:21 Dose: 20 meq Prochlorperazine Maleate (Compazine) 10 mg PO QID PRN PRN Reason: Nausea Ropinirole HCl (Requip) 4 mg PO BEDTIME [facility] Last Admin: 06/08/16 19:58 Dose: 4 mg Senna/Docusate Sodium (Senna Plus) 1 tab PO BID [facility] Last Admin: 06/09/16 08:18 Dose: 1 tab Temazepam (Restoril) 15 mg PO BEDTIME PRN PRN Reason: Insomnia Last Admin: 06/08/16 20:02 Dose: 15 mg Tramadol HCl (Ultram) 100 mg PO Q4H PRN PRN Reason: Pain Triamcinolone Acetonide (Triamcinolone Acetonide 0.1% Crm) 0 gm TOP BID [facility] Last Admin: 06/09/16 08:30 Dose: Not Given Triamterene/HCTZ (Maxzide 50-75 Mg) 0.5 each PO DAILY [facility] Last Admin: 06/09/16 08:19 Dose: 0.5 each Discontinued Medications Acetaminophen (Tylenol) 650 mg PO Q4H PRN PRN Reason: Fever/Pain Last Admin: 06/06/16 17:44 Dose: 650 mg Cyanocobalamin (Vitamin B12) 1,000 mcg IM ONETIME ONE Stop: 06/08/16 12:40 Last Admin: 06/08/16 14:16 Dose: Not Given Cyanocobalamin (Vitamin B12) 1,000 mcg IM ONETIME ONE Stop: 06/08/16 16:01 Last Admin: 06/08/16 16:30 Dose: 1,000 mcg Cefepime HCl 2 gm/ Sodium (Chloride) 100 mls @ 200 mls/hr IV Q8HR [facility] Cefepime HCl 2 gm/ Sodium (Chloride) 100 mls @ 200 mls/hr IV Q8HR [facility] Sodium Chloride (Normal Saline) 1,000 mls @ 150 mls/hr IV ASDIRECTED [facility] Last Admin: 06/07/16 16:24 Dose: 150 mls/hr - Exam General: Reports: alert, oriented HEENT: Reports: Pupils equal, EOMI Neck: Reports: supple Lungs: Reports: Clear to auscultation, Normal respiratory effort Cardiovascular: Reports: Regular Rate, Regular Rhythm Abdomen: Reports: soft, no tenderness, no distension Back Exam: Reports: normal inspection, full range of motion Extremities: Reports: no edema Skin: Reports: warm, dry, intact Wound/Incisions: Reports: healing well Neurological: Reports: no new focal deficit Psy/Mental Status: Reports: alert, normal affect, normal mood *Q Meaningful Use (DIS) - VTE *Q VTE Criteria *Q: - Stroke *Q Stroke Criteria *Q: - AMI *Q AMI Criteria *Q:
== END 2016-06-09 10:53 | disposition home or self-care (01) | DRG 194 ==
LOC: LL.ED 14:40 → LL.MS 15:56
PROVIDERS: ADMIT Emergency Medicine; ATTEND Emergency Medicine
DX: J18.9 Pneumonia, unspecified organism (principal); C85.10 Unspecified B-cell lymphoma, unspecified site; Z92.21 Personal history of antineoplastic chemotherapy; Z87.891 Personal history of nicotine dependence; R53.1 Weakness; R50.9 Fever, unspecified; D64.9 Anemia, unspecified; Z79.82 Long term (current) use of aspirin; Z88.1 Allergy status to other antibiotic agents; Z88.5 Allergy status to narcotic agent
CPT/HCPCS: 36415; 71020; 80053; 81001; 83540; 83550; 83605; 85025; 85045; 87040; 87804; 96374; 99285; A9270-GY; J0692; J3420; J3480; J7030; J7050

== ENCOUNTER 2023-01-15 10:05 | Emergency (ER) | payer MEDICARE, OTHER ==
[2023-01-15] MEDS ORDERED: Lidocaine 2% HCl 11 ML Jelly Filled Syringe TOP ONE (10:15)
[2023-01-15] MEDS ORDERED: Lidocaine 2% HCl 11 ML Jelly Filled Syringe ONE (10:15)
[2023-01-15 10:38] LABS: APPEARANCE,URINE CLEAR; BILIRUBIN,URINE NEGATIVE (NEGATIVE); COLOR,URINE YELLOW; GLUCOSE,URINE NEGATIVE (NEGATIVE); KETONES,URINE NEGATIVE (NEGATIVE); LEUKOCYTE ESTERASE,URINE NEGATIVE (NEGATIVE); NITRITE,URINE NEGATIVE (NEGATIVE); OCCULT BLOOD,URINE TRACE-INTACT (NEGATIVE); PH,URINE 5.5 (5.0-9.0); PROTEIN,URINE NEGATIVE (NEGATIVE); UROBILINOGEN,URINE 0.2 E.U./dL (0.2-1.0)
[2023-01-15 10:40] LABS: BASOPHILS ABSOLUTE AUTO 0.02 K/uL (0.00-0.20); BASOPHILS PERCENT AUTO 0.2 % (0.0-2.0); EOSINOPHILS ABSOLUTE AUTO 0.99 K/uL (0.00-0.50); EOSINOPHILS PERCENT AUTO 11.9 % (0.0-5.0); HEMATOCRIT 39.6 % (39.0-49.0); HEMOGLOBIN 13.5 g/dL (13.1-16.8); LYMPHOCYTES ABSOLUTE AUTO 1.65 K/uL (0.50-3.50); LYMPHOCYTES PERCENT AUTO 19.8 % (10.0-50.0); MEAN CORPUSCULAR HEMOGLOBIN 30.4 pg (28.2-33.3); MEAN CORPUSCULAR HGB CONC 34.1 g/dL (31.7-36.0); MEAN CORPUSCULAR VOLUME 89.2 fL (84.0-98.0); MONOCYTES ABSOLUTE AUTO 0.52 K/uL (0.00-1.00); MONOCYTES PERCENT AUTO 6.3 % (2.0-14.0); NEUTROPHILS ABSOLUTE AUTO 5.14 K/uL (1.40-7.00); NEUTROPHILS PERCENT AUTO 61.8 % (45.0-80.0); PLATELET COUNT,PLT 199 K/uL (150-350); RED BLOOD CELL COUNT 4.44 M/uL (4.33-5.41); RED CELL DISTRIBUTION WIDTH 13.8 % (11.2-14.1); WHITE BLOOD CELL COUNT,WBC 8.3 K/uL (4.0-10.2)
[2023-01-15 10:42] VITALS: BP 119/65
[2023-01-15 10:45] LABS: EPITHELIAL CELLS,URINE NOT SEEN /LPF; HYALINE CASTS,URINE FEW; RBC,URINE 0-5 /HPF; WBC,URINE 0-5 /HPF
[2023-01-15 10:59] VITALS: PULSE 64
[2023-01-15 10:59] LABS: ALBUMIN 3.6 g/dL (3.4-5.0); BILIRUBIN TOTAL 0.5 mg/dL (0.2-1.0); CALCIUM 9.3 mg/dL (8.5-10.1); CARBON DIOXIDE,CO2 26.4 mmol/L (21.0-32.0); CREATININE 1.34 mg/dL (0.51-1.17); EST CRCL DRUG DOSING (CG) 49.18 mL/min; POTASSIUM,K 3.4 mmol/L (3.5-5.1); PROTEIN TOTAL,TP 7.7 g/dL (6.4-8.2)
[2023-01-15] MEDS ORDERED: Sodium Chloride 0.9% 10 ML Syringe FLUSH PRN (11:11)
== END 2023-01-15 11:45 | disposition home or self-care (01) ==
LOC: LL.ED 10:05
DX: N40.1 Benign prostatic hyperplasia with lower urinary tract symptoms (principal); R33.9 Retention of urine, unspecified; I10 Essential (primary) hypertension; I25.10 Atherosclerotic heart disease of native coronary artery without angina pectoris; E78.00 Pure hypercholesterolemia, unspecified; I25.2 Old myocardial infarction; Z79.899 Other long term (current) drug therapy; Z88.1 Allergy status to other antibiotic agents; Z88.5 Allergy status to narcotic agent
CPT/HCPCS: 36415; 51702; 80053; 81001; 85025; 99284

== ENCOUNTER 2023-02-27 18:36 | Emergency (ER) | payer MEDICARE, OTHER ==
[2023-02-27 18:44] VITALS: BP 134/72; PULSE 98
== END 2023-02-27 19:31 | disposition home or self-care (01) ==
LOC: LL.ED 18:36
DX: T83.038A Leakage of other urinary catheter, initial encounter (principal); I10 Essential (primary) hypertension; I25.810 Atherosclerosis of coronary artery bypass graft(s) without angina pectoris; E78.00 Pure hypercholesterolemia, unspecified; I25.2 Old myocardial infarction; Z95.5 Presence of coronary angioplasty implant and graft; Z90.49 Acquired absence of other specified parts of digestive tract; Z79.899 Other long term (current) drug therapy; Z79.82 Long term (current) use of aspirin; Z88.5 Allergy status to narcotic agent; Z88.1 Allergy status to other antibiotic agents
CPT/HCPCS: 99283

== ENCOUNTER 2023-03-10 19:02 | Emergency (ER) | payer MEDICARE, OTHER ==
[2023-03-10 19:50] LABS: BASOPHILS ABSOLUTE AUTO 0.01 K/uL (0.00-0.20); BASOPHILS PERCENT AUTO 0.1 % (0.0-2.0); EOSINOPHILS ABSOLUTE AUTO 0.61 K/uL (0.00-0.50); EOSINOPHILS PERCENT AUTO 5.1 % (0.0-5.0); HEMATOCRIT 39.3 % (39.0-49.0); HEMOGLOBIN 13.1 g/dL (13.1-16.8); LYMPHOCYTES ABSOLUTE AUTO 1.66 K/uL (0.50-3.50); LYMPHOCYTES PERCENT AUTO 13.9 % (10.0-50.0); MEAN CORPUSCULAR HEMOGLOBIN 29.8 pg (28.2-33.3); MEAN CORPUSCULAR HGB CONC 33.3 g/dL (31.7-36.0); MEAN CORPUSCULAR VOLUME 89.5 fL (84.0-98.0); MONOCYTES ABSOLUTE AUTO 0.93 K/uL (0.00-1.00); MONOCYTES PERCENT AUTO 7.8 % (2.0-14.0); NEUTROPHILS ABSOLUTE AUTO 8.77 K/uL (1.40-7.00); NEUTROPHILS PERCENT AUTO 73.1 % (45.0-80.0); PLATELET COUNT,PLT 187 K/uL (150-350); RED BLOOD CELL COUNT 4.39 M/uL (4.33-5.41); RED CELL DISTRIBUTION WIDTH 14.2 % (11.2-14.1)
[2023-03-10 20:15] LABS: APPEARANCE,URINE CLOUDY; BILIRUBIN,URINE NEGATIVE (NEGATIVE); COLOR,URINE YELLOW; GLUCOSE,URINE NEGATIVE (NEGATIVE); KETONES,URINE TRACE mg/dL (NEGATIVE); LEUKOCYTE ESTERASE,URINE LARGE (NEGATIVE); NITRITE,URINE POSITIVE (NEGATIVE); OCCULT BLOOD,URINE LARGE (NEGATIVE); PH,URINE 5.5 (5.0-9.0); PROTEIN,URINE 30 mg/dL (NEGATIVE); UROBILINOGEN,URINE 0.2 E.U./dL (0.2-1.0)
[2023-03-10 20:18] LABS: ALANINE AMINOTRANSFERASE,ALT 15 U/L (12-78); ALBUMIN 3.3 g/dL (3.4-5.0); ALKALINE PHOSPHATASE 87 IU/L (46-116); ANION GAP 9.5 meq/L (7-15); ASPARTATE AMNIOTRANSFERASE,AST 11 U/L (15-37); BILIRUBIN TOTAL 0.5 mg/dL (0.2-1.0); BLOOD UREA NITROGEN,BUN 26 mg/dL (7-18); CALCIUM 9.1 mg/dL (8.5-10.1); CARBON DIOXIDE,CO2 26.5 mmol/L (21.0-32.0); CHLORIDE,CL 103 mmol/L (98-107); GLUCOSE RANDOM 110 mg/dL (70-99); MAGNESIUM 1.9 mg/dL (1.8-2.4); POTASSIUM,K 3.6 mmol/L (3.5-5.1); PRO B-TYPE NATRIUR PEPT,BNPPRO 558 pg/mL (0-125); PROTEIN TOTAL,TP 7.3 g/dL (6.4-8.2); SODIUM,NA 139 mmol/L (136-145)
[2023-03-10 20:19] LABS: ESTIMATED GFR 44 mL/min (>=60)
[2023-03-10 20:22] LABS: AMORPHOUS SEDIMENT,URINE FEW /HPF (0/HPF); BACTERIA,URINE MANY /HPF (NONE TO FEW); EPITHELIAL CELLS,URINE RARE /LPF; WBC,URINE 20-30 /HPF
[2023-03-10] MEDS ORDERED: Sodium Chloride 0.9% 1,000 ML IV ONE (20:28)
[2023-03-10 20:29] LABS: CORONAVIRUS COVID-19 NAA NEGATIVE (NEGATIVE); INFLUENZA A NAA NEGATIVE (NEGATIVE); INFLUENZA B NAA NEGATIVE (NEGATIVE); RESPIRATORY SYNCYTIAL VIR NAA NEGATIVE (NEGATIVE)
[2023-03-10] MEDS ORDERED: Iopamidol 755 Mg/ML 100 ML Bottle IVPUSH ONE (20:30)
[2023-03-10] MEDS ORDERED: Sodium Chloride 0.9% 10 ML Syringe FLUSH PRN (20:37)
[2023-03-10] MEDS ORDERED: predniSONE 20 MG Tab PO ONE (21:44)
[2023-03-10] MEDS ORDERED: Albuterol/Ipratropium 3.0-0.5 MG/3 ML Neb Soln NEB ONE (21:45)
[2023-03-10] MEDS ORDERED: Take Home: predniSONE 20 MG, 4 Tab Pack PO ONE (22:08)
[2023-03-10] MEDS ORDERED: Take Home: Albuterol/Ipratropium 3.0-0.5 MG/3 ML Neb Soln, 5 Neb Pack NEB ONE (22:08)
[2023-03-10] MEDS ORDERED: Take Home: Albuterol/Ipratropium 3.0-0.5 MG/3 ML Neb Soln, 5 Neb Pack ONE (22:18)
[2023-03-11 02:20] VITALS: BP 142/76; PULSE 76
== END 2023-03-10 22:35 | disposition home or self-care (01) ==
LOC: LL.ED 19:02
DX: R05.9 Cough, unspecified (principal); R06.02 Shortness of breath; I10 Essential (primary) hypertension; I25.2 Old myocardial infarction; I25.810 Atherosclerosis of coronary artery bypass graft(s) without angina pectoris; E78.00 Pure hypercholesterolemia, unspecified; Z88.5 Allergy status to narcotic agent; Z88.8 Allergy status to other drugs, medicaments and biological substances; Z79.899 Other long term (current) drug therapy; Z79.82 Long term (current) use of aspirin; Z90.49 Acquired absence of other specified parts of digestive tract; Z87.891 Personal history of nicotine dependence; Z20.822 Contact with and (suspected) exposure to COVID-19
CPT/HCPCS: 0241U; 36415; 71046; 71275; 80053; 81001; 83605; 83735; 83880; 84484; 85025; 85379; 87086; 93005; 94640; 96360; 96361; 99285; A9270; J7030; J7512; Q9967; 87088; 87186; J7620-GY

== ENCOUNTER 2023-04-25 12:12 | Emergency (ER) | payer MEDICARE, OTHER ==
[2023-04-25 12:19] VITALS: BP 157/105; PULSE 88
[2023-04-25] MEDS ORDERED: Sodium Chloride 0.9% 10 ML Syringe FLUSH PRN (12:35)
[2023-04-25 12:45] LABS: BASOPHILS ABSOLUTE AUTO 0.08 K/uL (0.00-0.20); BASOPHILS PERCENT AUTO 0.7 % (0.0-2.0); EOSINOPHILS ABSOLUTE AUTO 2.39 K/uL (0.00-0.50); EOSINOPHILS PERCENT AUTO 20.3 % (0.0-5.0); HEMOGLOBIN 13.8 g/dL (13.1-16.8); LYMPHOCYTES ABSOLUTE AUTO 1.82 K/uL (0.50-3.50); LYMPHOCYTES PERCENT AUTO 15.5 % (10.0-50.0); MEAN CORPUSCULAR HEMOGLOBIN 30.3 pg (28.2-33.3); MEAN CORPUSCULAR HGB CONC 33.7 g/dL (31.7-36.0); MEAN CORPUSCULAR VOLUME 90.1 fL (84.0-98.0); MONOCYTES ABSOLUTE AUTO 0.86 K/uL (0.00-1.00); MONOCYTES PERCENT AUTO 7.3 % (2.0-14.0); NEUTROPHILS ABSOLUTE AUTO 6.62 K/uL (1.40-7.00); NEUTROPHILS PERCENT AUTO 56.2 % (45.0-80.0); PLATELET COUNT,PLT 211 K/uL (150-350); RED BLOOD CELL COUNT 4.55 M/uL (4.33-5.41); RED CELL DISTRIBUTION WIDTH 15.2 % (11.2-14.1); WHITE BLOOD CELL COUNT,WBC 11.8 K/uL (4.0-10.2)
[2023-04-25 12:58] LABS: ALANINE AMINOTRANSFERASE,ALT 20 U/L (12-78); ALBUMIN 2.9 g/dL (3.4-5.0); ALKALINE PHOSPHATASE 139 IU/L (46-116); ANION GAP 12.3 meq/L (7-15); BILIRUBIN TOTAL 0.5 mg/dL (0.2-1.0); BLOOD UREA NITROGEN,BUN 29 mg/dL (7-18); CALCIUM 8.6 mg/dL (8.5-10.1); CHLORIDE,CL 104 mmol/L (98-107); CREATININE 1.49 mg/dL (0.51-1.17); ESTIMATED GFR 48 mL/min (>=60); GLUCOSE RANDOM 167 mg/dL (70-99); MAGNESIUM 1.9 mg/dL (1.8-2.4); POTASSIUM,K 3.3 mmol/L (3.5-5.1); PRO B-TYPE NATRIUR PEPT,BNPPRO 1070 pg/mL (0-125); PROTEIN TOTAL,TP 7.7 g/dL (6.4-8.2); SODIUM,NA 138 mmol/L (136-145)
[2023-04-25 13:08] LABS: ASPARTATE AMNIOTRANSFERASE,AST 8 U/L (15-37)
[2023-04-25 14:05] LABS: BILIRUBIN,URINE NEGATIVE (NEGATIVE); COLOR,URINE YELLOW; GLUCOSE,URINE NEGATIVE (NEGATIVE); KETONES,URINE NEGATIVE (NEGATIVE); LEUKOCYTE ESTERASE,URINE LARGE (NEGATIVE); NITRITE,URINE NEGATIVE (NEGATIVE); OCCULT BLOOD,URINE MODERATE (NEGATIVE); PH,URINE 5.5 (5.0-9.0); PROTEIN,URINE 100 mg/dL (NEGATIVE); UROBILINOGEN,URINE 0.2 E.U./dL (0.2-1.0)
[2023-04-25 14:06] LABS: CORONAVIRUS COVID-19 NAA NEGATIVE (NEGATIVE); INFLUENZA A NAA NEGATIVE (NEGATIVE); INFLUENZA B NAA NEGATIVE (NEGATIVE); RESPIRATORY SYNCYTIAL VIR NAA NEGATIVE (NEGATIVE)
[2023-04-25 14:18] LABS: APPEARANCE,URINE CLOUDY
[2023-04-25 14:19] LABS: BACTERIA,URINE FEW /HPF (NONE TO FEW); WBC,URINE 30-40 /HPF
== END 2023-04-25 15:30 | disposition home or self-care (01) ==
LOC: LL.ED 12:12
DX: I49.3 Ventricular premature depolarization (principal); D72.829 Elevated white blood cell count, unspecified; R06.81 Apnea, not elsewhere classified; R53.83 Other fatigue; I25.10 Atherosclerotic heart disease of native coronary artery without angina pectoris; I10 Essential (primary) hypertension; I25.2 Old myocardial infarction; E78.00 Pure hypercholesterolemia, unspecified; M19.90 Unspecified osteoarthritis, unspecified site; Z95.1 Presence of aortocoronary bypass graft; Z95.5 Presence of coronary angioplasty implant and graft; Z79.82 Long term (current) use of aspirin; Z79.899 Other long term (current) drug therapy; Z88.1 Allergy status to other antibiotic agents; Z88.5 Allergy status to narcotic agent
CPT/HCPCS: 0241U; 36415; 71046; 80053; 81001; 83605; 83735; 83880; 84484; 85025; 85379; 87086; 93005; 99285

== ENCOUNTER 2024-06-30 13:31 | Emergency (ER) | payer MEDICARE, OTHER ==
[2024-06-30 14:12] LABS: BASOPHILS ABSOLUTE AUTO 0.04 K/uL (0.00-0.20); BASOPHILS PERCENT AUTO 0.4 % (0.0-2.0); EOSINOPHILS ABSOLUTE AUTO 0.07 K/uL (0.00-0.50); EOSINOPHILS PERCENT AUTO 0.6 % (0.0-5.0); HEMATOCRIT 35.8 % (39.0-49.0); HEMOGLOBIN 11.6 g/dL (13.1-16.8); IMMATURE GRAN ABSOLUTE AUTO 0.03 10^3/uL (0.00-0.04); IMMATURE GRAN PERCENT AUTO 0.3 % (0.0-0.4); LYMPHOCYTES ABSOLUTE AUTO 2.02 K/uL (0.50-3.50); LYMPHOCYTES PERCENT AUTO 18.7 % (10.0-50.0); MEAN CORPUSCULAR HEMOGLOBIN 28.3 pg (28.2-33.3); MEAN CORPUSCULAR HGB CONC 32.4 g/dL (31.7-36.0); MEAN CORPUSCULAR VOLUME 87.3 fL (84.0-98.0); MONOCYTES ABSOLUTE AUTO 0.42 K/uL (0.00-1.00); MONOCYTES PERCENT AUTO 3.9 % (2.0-14.0); NEUTROPHILS ABSOLUTE AUTO 8.24 K/uL (1.40-7.00); NEUTROPHILS PERCENT AUTO 76.1 % (45.0-80.0); PLATELET COUNT,PLT 240 K/uL (150-350); RED CELL DISTRIBUTION WIDTH 14.4 % (11.2-14.1); WHITE BLOOD CELL COUNT,WBC 10.8 K/uL (4.0-10.2)
[2024-06-30 14:28] LABS: INR 1.1 (0.9-1.1); PROTHROMBIN TIME 10.8 SEC (9.0-11.1)
[2024-06-30 14:36] LABS: LACTIC ACID 1.3 mmol/L (0.4-2.0)
[2024-06-30 14:40] LABS: ALANINE AMINOTRANSFERASE,ALT 16 U/L (12-78); ALBUMIN 3.5 g/dL (3.4-5.0); ALKALINE PHOSPHATASE 119 IU/L (46-116); ANION GAP 7.6 meq/L (7-15); ASPARTATE AMNIOTRANSFERASE,AST 13 U/L (15-37); BILIRUBIN TOTAL 0.4 mg/dL (0.2-1.0); BLOOD UREA NITROGEN,BUN 24 mg/dL (7-18); CALCIUM 8.9 mg/dL (8.5-10.1); CARBON DIOXIDE,CO2 29.4 mmol/L (21.0-32.0); CHLORIDE,CL 103 mmol/L (98-107); CREATININE 1.41 mg/dL (0.51-1.17); GLUCOSE RANDOM 136 mg/dL (70-99); POTASSIUM,K 3.7 mmol/L (3.5-5.1); PROTEIN TOTAL,TP 7.8 g/dL (6.4-8.2); SODIUM,NA 140 mmol/L (136-145)
[2024-06-30 14:53] LABS: ESTIMATED GFR 51 mL/min (>=60)
[2024-06-30 15:46] VITALS: BP 134/81; PULSE 76
== END 2024-06-30 15:56 | disposition home or self-care (01) ==
LOC: LL.ED 13:31
DX: R05.9 Cough, unspecified (principal); I25.10 Atherosclerotic heart disease of native coronary artery without angina pectoris; E78.00 Pure hypercholesterolemia, unspecified; I10 Essential (primary) hypertension; I25.2 Old myocardial infarction; Z95.5 Presence of coronary angioplasty implant and graft; Z88.1 Allergy status to other antibiotic agents; Z88.5 Allergy status to narcotic agent; Z79.82 Long term (current) use of aspirin; Z79.899 Other long term (current) drug therapy; Z87.891 Personal history of nicotine dependence
CPT/HCPCS: 36415; 71046; 80053; 83605; 84484; 85025; 85610; 99283; 99284

== ENCOUNTER 2024-09-12 05:51 | Inpatient (IN) | payer MEDICARE, OTHER ==
[2024-09-12] MEDS: Ondansetron 4 MG/2 ML SDV IVPUSH ONE (06:30)
[2024-09-12] MEDS: Sodium Chloride 0.9% 10 ML Syringe FLUSH PRN (06:30)
[2024-09-12 06:41] LABS: BASOPHILS ABSOLUTE AUTO 0.05 K/uL (0.00-0.20); BASOPHILS PERCENT AUTO 0.4 % (0.0-2.0); EOSINOPHILS ABSOLUTE AUTO 0.14 K/uL (0.00-0.50); EOSINOPHILS PERCENT AUTO 1.2 % (0.0-5.0); IMMATURE GRAN ABSOLUTE AUTO 0.01 10^3/uL (0.00-0.04); IMMATURE GRAN PERCENT AUTO 0.1 % (0.0-0.4); LYMPHOCYTES ABSOLUTE AUTO 2.77 K/uL (0.50-3.50); LYMPHOCYTES PERCENT AUTO 23.8 % (10.0-50.0); MONOCYTES ABSOLUTE AUTO 0.77 K/uL (0.00-1.00); MONOCYTES PERCENT AUTO 6.6 % (2.0-14.0); NEUTROPHILS ABSOLUTE AUTO 7.91 K/uL (1.40-7.00); NEUTROPHILS PERCENT AUTO 67.9 % (45.0-80.0); PLATELET COUNT,PLT 241 K/uL (150-350); RED BLOOD CELL COUNT 4.13 M/uL (4.33-5.41); RED CELL DISTRIBUTION WIDTH 15.9 % (11.2-14.1); WHITE BLOOD CELL COUNT,WBC 11.7 K/uL (4.0-10.2)
[2024-09-12 06:48] LABS: ALANINE AMINOTRANSFERASE,ALT 19 U/L (12-78); ASPARTATE AMNIOTRANSFERASE,AST 12 U/L (15-37); BILIRUBIN TOTAL 0.5 mg/dL (0.2-1.0); BLOOD UREA NITROGEN,BUN 26 mg/dL (7-18); CARBON DIOXIDE,CO2 27.0 mmol/L (21.0-32.0); CHLORIDE,CL 103 mmol/L (98-107); CREATININE 1.39 mg/dL (0.51-1.17); GLUCOSE RANDOM 118 mg/dL (70-99); POTASSIUM,K 3.2 mmol/L (3.5-5.1); PROTEIN TOTAL,TP 7.5 g/dL (6.4-8.2); SODIUM,NA 140 mmol/L (136-145)
[2024-09-12 06:49] LABS: ESTIMATED GFR 52 mL/min (>=60)
[2024-09-12 07:02] LABS: INR 1.0 (0.9-1.1); PTT,PARTIAL THROMBOPLSTIN TIME 23.4 SEC (23.8-34.4)
[2024-09-12] MEDS: Iopamidol 755 Mg/ML 100 ML Bottle IVPUSH ONE (07:33)
[2024-09-12] MEDS ORDERED: Ondansetron 4 MG Tab.DIS PO PRN (10:52)
[2024-09-12] MEDS ORDERED: Triamcinolone Acetonide 0.1% Crm 15 GM Tube TOP PRN (10:52)
[2024-09-12 11:13] LABS: APPEARANCE,URINE TURBID; GLUCOSE,URINE NEGATIVE (NEGATIVE); OCCULT BLOOD,URINE TRACE-INTACT (NEGATIVE)
[2024-09-12] MEDS: Potassium Chloride 20 MEQ Tab.ER PO SCH (12:34)
[2024-09-12] MEDS: Hydrochlorothiazide/Triamterene 50-75 MG Tab PO SCH (12:36)
[2024-09-12] MEDS: fentaNYL 50 MCG/HR Transdermal Patch TRDERM SCH (13:24)
[2024-09-13] MEDS: Ondansetron 4 MG/2 ML SDV IVPUSH PRN (03:44)
[2024-09-13] MEDS: Pantoprazole 20 MG Tab, Delayed Release PO SCH (07:20)
[2024-09-13] MEDS: Cyanocobalamin (Vitamin B12) 1,000 MCG Tab PO SCH (07:30)
[2024-09-13 07:39] LABS: BASOPHILS ABSOLUTE AUTO 0.04 K/uL (0.00-0.20); BASOPHILS PERCENT AUTO 0.4 % (0.0-2.0); EOSINOPHILS ABSOLUTE AUTO 0.13 K/uL (0.00-0.50); EOSINOPHILS PERCENT AUTO 1.2 % (0.0-5.0); IMMATURE GRAN ABSOLUTE AUTO 0.02 10^3/uL (0.00-0.04); IMMATURE GRAN PERCENT AUTO 0.2 % (0.0-0.4); LYMPHOCYTES ABSOLUTE AUTO 2.13 K/uL (0.50-3.50); LYMPHOCYTES PERCENT AUTO 20.0 % (10.0-50.0); MONOCYTES ABSOLUTE AUTO 0.78 K/uL (0.00-1.00); MONOCYTES PERCENT AUTO 7.3 % (2.0-14.0); NEUTROPHILS ABSOLUTE AUTO 7.57 K/uL (1.40-7.00); NEUTROPHILS PERCENT AUTO 70.9 % (45.0-80.0); PLATELET COUNT,PLT 219 K/uL (150-350); RED BLOOD CELL COUNT 4.13 M/uL (4.33-5.41); RED CELL DISTRIBUTION WIDTH 16.0 % (11.2-14.1); WHITE BLOOD CELL COUNT,WBC 10.7 K/uL (4.0-10.2)
[2024-09-13 08:01] LABS: ALANINE AMINOTRANSFERASE,ALT 13.0 U/L (12-78); ASPARTATE AMNIOTRANSFERASE,AST 7.0 U/L (15-37); BILIRUBIN TOTAL 0.7 mg/dL (0.2-1.0); BLOOD UREA NITROGEN,BUN 26.0 mg/dL (7-18); CARBON DIOXIDE,CO2 31.1 mmol/L (21.0-32.0); CHLORIDE,CL 103.0 mmol/L (98-107); CREATININE 1.1 mg/dL (0.51-1.17); EST CRCL DRUG DOSING (CG) 56.24 mL/min; GLUCOSE RANDOM 107.0 mg/dL (70-99); POTASSIUM,K 4.0 mmol/L (3.5-5.1); PROTEIN TOTAL,TP 7.2 g/dL (6.4-8.2); SODIUM,NA 142.0 mmol/L (136-145)
[2024-09-13 08:03] LABS: ESTIMATED GFR 69.0 mL/min (>=60)
[2024-09-13] MEDS: Sennosides/Docusate Sodium 50-8.6 MG Tab PO SCH (12:18)
[2024-09-13] MEDS: Lactated Ringers 500 ML IV ONE (12:24)
[2024-09-14] MEDS: fentaNYL 50 MCG/HR Transdermal Patch TRDERM SCH (08:20)
[2024-09-14 09:43] LABS: BASOPHILS ABSOLUTE AUTO 0.03 K/uL (0.00-0.20); BASOPHILS PERCENT AUTO 0.3 % (0.0-2.0); EOSINOPHILS ABSOLUTE AUTO 0.28 K/uL (0.00-0.50); EOSINOPHILS PERCENT AUTO 2.7 % (0.0-5.0); IMMATURE GRAN ABSOLUTE AUTO 0.02 10^3/uL (0.00-0.04); IMMATURE GRAN PERCENT AUTO 0.2 % (0.0-0.4); LYMPHOCYTES ABSOLUTE AUTO 2.68 K/uL (0.50-3.50); LYMPHOCYTES PERCENT AUTO 25.8 % (10.0-50.0); MONOCYTES ABSOLUTE AUTO 0.80 K/uL (0.00-1.00); MONOCYTES PERCENT AUTO 7.7 % (2.0-14.0); NEUTROPHILS ABSOLUTE AUTO 6.56 K/uL (1.40-7.00); NEUTROPHILS PERCENT AUTO 63.3 % (45.0-80.0); PLATELET COUNT,PLT 221 K/uL (150-350); RED BLOOD CELL COUNT 4.13 M/uL (4.33-5.41); RED CELL DISTRIBUTION WIDTH 15.8 % (11.2-14.1); WHITE BLOOD CELL COUNT,WBC 10.4 K/uL (4.0-10.2)
[2024-09-14 10:04] LABS: ALANINE AMINOTRANSFERASE,ALT 17.0 U/L (12-78); ASPARTATE AMNIOTRANSFERASE,AST 10.0 U/L (15-37); BILIRUBIN TOTAL 0.9 mg/dL (0.2-1.0); BLOOD UREA NITROGEN,BUN 33.0 mg/dL (7-18); CARBON DIOXIDE,CO2 31.6 mmol/L (21.0-32.0); CHLORIDE,CL 101.0 mmol/L (98-107); CREATININE 1.31 mg/dL (0.51-1.17); EST CRCL DRUG DOSING (CG) 47.22 mL/min; GLUCOSE RANDOM 147.0 mg/dL (70-99); POTASSIUM,K 3.6 mmol/L (3.5-5.1); PROTEIN TOTAL,TP 6.9 g/dL (6.4-8.2); SODIUM,NA 141.0 mmol/L (136-145)
[2024-09-14 10:05] LABS: ESTIMATED GFR 56.0 mL/min (>=60)
[2024-09-14] MEDS: Lactated Ringers 1,000 ML IV ONE (12:55)
[2024-09-15 08:49] LABS: BASOPHILS ABSOLUTE AUTO 0.05 K/uL (0.00-0.20); BASOPHILS PERCENT AUTO 0.4 % (0.0-2.0); EOSINOPHILS ABSOLUTE AUTO 0.32 K/uL (0.00-0.50); EOSINOPHILS PERCENT AUTO 2.8 % (0.0-5.0); IMMATURE GRAN ABSOLUTE AUTO 0.01 10^3/uL (0.00-0.04); IMMATURE GRAN PERCENT AUTO 0.1 % (0.0-0.4); LYMPHOCYTES ABSOLUTE AUTO 3.28 K/uL (0.50-3.50); LYMPHOCYTES PERCENT AUTO 28.4 % (10.0-50.0); MONOCYTES ABSOLUTE AUTO 0.87 K/uL (0.00-1.00); MONOCYTES PERCENT AUTO 7.5 % (2.0-14.0); NEUTROPHILS ABSOLUTE AUTO 7.00 K/uL (1.40-7.00); NEUTROPHILS PERCENT AUTO 60.8 % (45.0-80.0); PLATELET COUNT,PLT 244 K/uL (150-350); RED BLOOD CELL COUNT 4.27 M/uL (4.33-5.41); RED CELL DISTRIBUTION WIDTH 16.0 % (11.2-14.1); WHITE BLOOD CELL COUNT,WBC 11.5 K/uL (4.0-10.2)
[2024-09-15 08:53] LABS: ALANINE AMINOTRANSFERASE,ALT 16.0 U/L (12-78); ASPARTATE AMNIOTRANSFERASE,AST 9.0 U/L (15-37); BILIRUBIN TOTAL 0.8 mg/dL (0.2-1.0); BLOOD UREA NITROGEN,BUN 27.0 mg/dL (7-18); CARBON DIOXIDE,CO2 28.8 mmol/L (21.0-32.0); CHLORIDE,CL 103.0 mmol/L (98-107); CREATININE 1.19 mg/dL (0.51-1.17); EST CRCL DRUG DOSING (CG) 51.99 mL/min; GLUCOSE RANDOM 99.0 mg/dL (70-99); POTASSIUM,K 4.2 mmol/L (3.5-5.1); PROTEIN TOTAL,TP 7.3 g/dL (6.4-8.2); SODIUM,NA 141.0 mmol/L (136-145)
[2024-09-15 09:02] LABS: ESTIMATED GFR 63.0 mL/min (>=60)
[2024-09-16 07:34] LABS: BASOPHILS ABSOLUTE AUTO 0.03 K/uL (0.00-0.20); BASOPHILS PERCENT AUTO 0.3 % (0.0-2.0); EOSINOPHILS ABSOLUTE AUTO 0.31 K/uL (0.00-0.50); EOSINOPHILS PERCENT AUTO 3.3 % (0.0-5.0); IMMATURE GRAN ABSOLUTE AUTO 0.02 10^3/uL (0.00-0.04); IMMATURE GRAN PERCENT AUTO 0.2 % (0.0-0.4); LYMPHOCYTES ABSOLUTE AUTO 2.44 K/uL (0.50-3.50); LYMPHOCYTES PERCENT AUTO 25.6 % (10.0-50.0); MONOCYTES ABSOLUTE AUTO 0.72 K/uL (0.00-1.00); MONOCYTES PERCENT AUTO 7.6 % (2.0-14.0); NEUTROPHILS ABSOLUTE AUTO 6.01 K/uL (1.40-7.00); NEUTROPHILS PERCENT AUTO 63.0 % (45.0-80.0); PLATELET COUNT,PLT 234 K/uL (150-350); RED BLOOD CELL COUNT 4.21 M/uL (4.33-5.41); RED CELL DISTRIBUTION WIDTH 16.0 % (11.2-14.1); WHITE BLOOD CELL COUNT,WBC 9.5 K/uL (4.0-10.2)
[2024-09-17 07:30] LABS: BASOPHILS ABSOLUTE AUTO 0.03 K/uL (0.00-0.20); BASOPHILS PERCENT AUTO 0.3 % (0.0-2.0); EOSINOPHILS ABSOLUTE AUTO 0.34 K/uL (0.00-0.50); EOSINOPHILS PERCENT AUTO 3.3 % (0.0-5.0); IMMATURE GRAN ABSOLUTE AUTO 0.02 10^3/uL (0.00-0.04); IMMATURE GRAN PERCENT AUTO 0.2 % (0.0-0.4); LYMPHOCYTES ABSOLUTE AUTO 2.57 K/uL (0.50-3.50); LYMPHOCYTES PERCENT AUTO 25.0 % (10.0-50.0); MONOCYTES ABSOLUTE AUTO 0.77 K/uL (0.00-1.00); MONOCYTES PERCENT AUTO 7.5 % (2.0-14.0); NEUTROPHILS ABSOLUTE AUTO 6.55 K/uL (1.40-7.00); NEUTROPHILS PERCENT AUTO 63.7 % (45.0-80.0); PLATELET COUNT,PLT 255 K/uL (150-350); RED BLOOD CELL COUNT 4.37 M/uL (4.33-5.41); RED CELL DISTRIBUTION WIDTH 15.8 % (11.2-14.1); WHITE BLOOD CELL COUNT,WBC 10.3 K/uL (4.0-10.2)
[2024-09-17 07:44] LABS: BLOOD UREA NITROGEN,BUN 22.0 mg/dL (7-18); CARBON DIOXIDE,CO2 30.1 mmol/L (21.0-32.0); CHLORIDE,CL 101.0 mmol/L (98-107); CREATININE 1.21 mg/dL (0.51-1.17); EST CRCL DRUG DOSING (CG) 51.13 mL/min; GLUCOSE RANDOM 102.0 mg/dL (70-99); POTASSIUM,K 4.1 mmol/L (3.5-5.1); SODIUM,NA 140.0 mmol/L (136-145)
[2024-09-17 07:57] LABS: ESTIMATED GFR 62.0 mL/min (>=60)
[2024-09-17 12:13] VITALS: BP 133/83; PULSE 82
== END 2024-09-17 12:30 | disposition home or self-care (01) | DRG 690 ==
LOC: LL.ED 05:51 → LL.MS 09:15 → OBSVTOIN 09-14 09:30
PROVIDERS: ADMIT Physician Assistant Medical; ATTEND Physician Assistant Medical
DX: R42 Dizziness and giddiness (principal); I10 Essential (primary) hypertension; N39.0 Urinary tract infection, site not specified; H91.90 Unspecified hearing loss, unspecified ear; Z88.1 Allergy status to other antibiotic agents; Z88.5 Allergy status to narcotic agent; I25.10 Atherosclerotic heart disease of native coronary artery without angina pectoris; E78.00 Pure hypercholesterolemia, unspecified; I25.2 Old myocardial infarction; K80.20 Calculus of gallbladder without cholecystitis without obstruction; N40.0 Benign prostatic hyperplasia without lower urinary tract symptoms; N18.9 Chronic kidney disease, unspecified; I12.9 Hypertensive chronic kidney disease with stage 1 through stage 4 chronic kidney disease, or unspecified chronic kidney disease; M19.90 Unspecified osteoarthritis, unspecified site; K21.9 Gastro-esophageal reflux disease without esophagitis; M54.9 Dorsalgia, unspecified; G89.29 Other chronic pain; M54.2 Cervicalgia; B96.20 Unspecified Escherichia coli [E. coli] as the cause of diseases classified elsewhere; F39 Unspecified mood [affective] disorder; F32.A Depression, unspecified; Z85.46 Personal history of malignant neoplasm of prostate; Z98.890 Other specified postprocedural states; Z90.49 Acquired absence of other specified parts of digestive tract; Z79.82 Long term (current) use of aspirin; Z98.49 Cataract extraction status, unspecified eye; Z86.73 Personal history of transient ischemic attack (TIA), and cerebral infarction without residual deficits; Z79.899 Other long term (current) drug therapy; Z88.8 Allergy status to other drugs, medicaments and biological substances; Z90.79 Acquired absence of other genital organ(s); Z87.891 Personal history of nicotine dependence; Z95.5 Presence of coronary angioplasty implant and graft
CPT/HCPCS: 36415; 51798; 70450; 70496; 70498; 80048; 80053; 81001; 82947; 83605; 83735; 84484; 85025; 85610; 85730; 87086; 87088; 87186; 93005; 93010; 96361; 96374; 96376; 97110-GP; 97161-GP; 97530-GP; 99285-25; A9270-GY; G0378; J0696; J2405; J7120; Q9967

== ENCOUNTER 2024-11-28 15:58 | Inpatient (IN) | payer MEDICARE, OTHER ==
[2024-11-28] MEDS: Furosemide 40 MG/4 ML VIAL IVPUSH SCH (17:27)
[2024-11-28] MEDS: Sodium Chloride 0.9% 10 ML Syringe FLUSH PRN (17:27)
[2024-11-28 17:41] LABS: CORONAVIRUS COVID-19 NAA NEGATIVE (NEGATIVE); INFLUENZA A NAA NEGATIVE (NEGATIVE); INFLUENZA B NAA NEGATIVE (NEGATIVE); RESPIRATORY SYNCYTIAL VIR NAA NEGATIVE (NEGATIVE)
[2024-11-28] MEDS ORDERED: Ondansetron 4 MG Tab.DIS PO PRN (17:55)
[2024-11-28] MEDS ORDERED: Triamcinolone Acetonide 0.1% Crm 15 GM Tube TOP PRN (18:16)
[2024-11-28] MEDS ORDERED: Nitroglycerin 0.4 MG Tab.SL SL PRN (18:16)
[2024-11-28 21:18] LABS: BLOOD UREA NITROGEN,BUN 27.0 mg/dL (7-18); CARBON DIOXIDE,CO2 28.3 mmol/L (21.0-32.0); CHLORIDE,CL 103.0 mmol/L (98-107); CREATININE 1.47 mg/dL (0.51-1.17); EST CRCL DRUG DOSING (CG) 43.45 mL/min; GLUCOSE RANDOM 120.0 mg/dL (70-99); POTASSIUM,K 3.6 mmol/L (3.5-5.1); SODIUM,NA 143.0 mmol/L (136-145)
[2024-11-28 21:19] LABS: ESTIMATED GFR 49.0 mL/min (>=60)
[2024-11-28] MEDS: Pantoprazole 20 MG Tab, Delayed Release PO SCH (21:54)
[2024-11-28] MEDS: Furosemide 20 MG/2 ML VIAL IVPUSH ONE (21:55)
[2024-11-29] MEDS: Potassium Chloride 20 MEQ Tab.ER PO SCH (07:33)
[2024-11-29] MEDS: Cyanocobalamin (Vitamin B12) 1,000 MCG Tab PO SCH (07:34)
[2024-11-29 07:44] LABS: BLOOD UREA NITROGEN,BUN 26.0 mg/dL (7-18); CARBON DIOXIDE,CO2 29.3 mmol/L (21.0-32.0); CHLORIDE,CL 101.0 mmol/L (98-107); CREATININE 1.49 mg/dL (0.51-1.17); EST CRCL DRUG DOSING (CG) 42.87 mL/min; GLUCOSE RANDOM 106.0 mg/dL (70-99); POTASSIUM,K 3.1 mmol/L (3.5-5.1); SODIUM,NA 142.0 mmol/L (136-145)
[2024-11-29 07:45] LABS: ESTIMATED GFR 48.0 mL/min (>=60)
[2024-11-29 07:49] LABS: BASOPHILS ABSOLUTE AUTO 0.04 K/uL (0.00-0.20); BASOPHILS PERCENT AUTO 0.5 % (0.0-2.0); EOSINOPHILS ABSOLUTE AUTO 0.24 K/uL (0.00-0.50); EOSINOPHILS PERCENT AUTO 2.8 % (0.0-5.0); IMMATURE GRAN ABSOLUTE AUTO 0.01 10^3/uL (0.00-0.04); IMMATURE GRAN PERCENT AUTO 0.1 % (0.0-0.4); LYMPHOCYTES ABSOLUTE AUTO 2.23 K/uL (0.50-3.50); LYMPHOCYTES PERCENT AUTO 25.7 % (10.0-50.0); MONOCYTES ABSOLUTE AUTO 0.87 K/uL (0.00-1.00); MONOCYTES PERCENT AUTO 10.0 % (2.0-14.0); NEUTROPHILS ABSOLUTE AUTO 5.28 K/uL (1.40-7.00); NEUTROPHILS PERCENT AUTO 60.9 % (45.0-80.0); PLATELET COUNT,PLT 258 K/uL (150-350); RED BLOOD CELL COUNT 4.12 M/uL (4.33-5.41); RED CELL DISTRIBUTION WIDTH 14.9 % (11.2-14.1); WHITE BLOOD CELL COUNT,WBC 8.7 K/uL (4.0-10.2)
[2024-11-29] MEDS: FENTANYL PATCH TRDERM SCH (08:07)
[2024-11-29] MEDS: fentaNYL 50 MCG/HR Transdermal Patch TRDERM SCH (08:07)
[2024-11-29] MEDS: Potassium Bicarbonate/Cit Ac 20 MEQ Effervescent Tab PO ONE ×2 (08:45→20:45)
[2024-11-29 08:49] LABS: APPEARANCE,URINE CLEAR; GLUCOSE,URINE NEGATIVE (NEGATIVE); OCCULT BLOOD,URINE NEGATIVE (NEGATIVE)
[2024-11-30 08:07] LABS: BASOPHILS ABSOLUTE AUTO 0.07 K/uL (0.00-0.20); BASOPHILS PERCENT AUTO 0.6 % (0.0-2.0); EOSINOPHILS ABSOLUTE AUTO 0.52 K/uL (0.00-0.50); EOSINOPHILS PERCENT AUTO 4.8 % (0.0-5.0); IMMATURE GRAN ABSOLUTE AUTO 0.01 10^3/uL (0.00-0.04); IMMATURE GRAN PERCENT AUTO 0.1 % (0.0-0.4); LYMPHOCYTES ABSOLUTE AUTO 3.49 K/uL (0.50-3.50); LYMPHOCYTES PERCENT AUTO 32.1 % (10.0-50.0); MONOCYTES ABSOLUTE AUTO 1.16 K/uL (0.00-1.00); MONOCYTES PERCENT AUTO 10.7 % (2.0-14.0); NEUTROPHILS ABSOLUTE AUTO 5.61 K/uL (1.40-7.00); NEUTROPHILS PERCENT AUTO 51.7 % (45.0-80.0); PLATELET COUNT,PLT 305 K/uL (150-350); RED BLOOD CELL COUNT 4.30 M/uL (4.33-5.41); RED CELL DISTRIBUTION WIDTH 15.0 % (11.2-14.1); WHITE BLOOD CELL COUNT,WBC 10.9 K/uL (4.0-10.2)
[2024-11-30 08:23] LABS: BLOOD UREA NITROGEN,BUN 33.0 mg/dL (7-18); CARBON DIOXIDE,CO2 30.5 mmol/L (21.0-32.0); CHLORIDE,CL 102.0 mmol/L (98-107); CREATININE 1.78 mg/dL (0.51-1.17); EST CRCL DRUG DOSING (CG) 35.88 mL/min; GLUCOSE RANDOM 107.0 mg/dL (70-99); POTASSIUM,K 4.4 mmol/L (3.5-5.1); SODIUM,NA 142.0 mmol/L (136-145)
[2024-11-30 08:35] LABS: ESTIMATED GFR 39.0 mL/min (>=60)
[2024-11-30 10:43] VITALS: BP 130/76; PULSE 94
== END 2024-11-30 10:40 | disposition home or self-care (01) | DRG 291 ==
LOC: LL.ED 15:58 → LL.MS 16:44
PROVIDERS: ADMIT Physician Assistant; ATTEND Student in an Organized Health Care Education/Training Program
DX: I13.0 Hypertensive heart and chronic kidney disease with heart failure and stage 1 through stage 4 chronic kidney disease, or unspecified chronic kidney disease (principal); I50.21 Acute systolic (congestive) heart failure; C83.31 Diffuse large B-cell lymphoma, lymph nodes of head, face, and neck; I48.0 Paroxysmal atrial fibrillation; H91.90 Unspecified hearing loss, unspecified ear; I50.9 Heart failure, unspecified; E78.00 Pure hypercholesterolemia, unspecified; N40.0 Benign prostatic hyperplasia without lower urinary tract symptoms; M19.90 Unspecified osteoarthritis, unspecified site; F32.A Depression, unspecified; J43.1 Panlobular emphysema; F41.1 Generalized anxiety disorder; N18.31 Chronic kidney disease, stage 3a; I71.21 Aneurysm of the ascending aorta, without rupture; I08.3 Combined rheumatic disorders of mitral, aortic and tricuspid valves; I25.10 Atherosclerotic heart disease of native coronary artery without angina pectoris; I11.0 Hypertensive heart disease with heart failure; E87.6 Hypokalemia; Z88.1 Allergy status to other antibiotic agents; Z88.5 Allergy status to narcotic agent; Z79.02 Long term (current) use of antithrombotics/antiplatelets; Z79.51 Long term (current) use of inhaled steroids; I25.2 Old myocardial infarction; Z95.5 Presence of coronary angioplasty implant and graft; Z86.73 Personal history of transient ischemic attack (TIA), and cerebral infarction without residual deficits; Z85.46 Personal history of malignant neoplasm of prostate; Z98.49 Cataract extraction status, unspecified eye; Z98.890 Other specified postprocedural states; Z95.1 Presence of aortocoronary bypass graft; Z79.82 Long term (current) use of aspirin; Z79.899 Other long term (current) drug therapy; Z90.49 Acquired absence of other specified parts of digestive tract
CPT/HCPCS: 36415; 51701; 80048; 81003; 83735; 84132; 85025; 87637; 93005; 93010; 99223; 99233; 99239; 99285; A9270-GY; J1650; J1938

== ENCOUNTER 2024-12-31 23:54 | Inpatient (IN) | payer MEDICARE, OTHER ==
[2025-01-01 00:19] LABS: BASOPHILS ABSOLUTE AUTO 0.06 K/uL (0.00-0.20); BASOPHILS PERCENT AUTO 0.6 % (0.0-2.0); EOSINOPHILS ABSOLUTE AUTO 0.91 K/uL (0.00-0.50); EOSINOPHILS PERCENT AUTO 9.8 % (0.0-5.0); IMMATURE GRAN ABSOLUTE AUTO 0.01 10^3/uL (0.00-0.04); IMMATURE GRAN PERCENT AUTO 0.1 % (0.0-0.4); LYMPHOCYTES ABSOLUTE AUTO 3.18 K/uL (0.50-3.50); LYMPHOCYTES PERCENT AUTO 34.2 % (10.0-50.0); MONOCYTES ABSOLUTE AUTO 0.84 K/uL (0.00-1.00); MONOCYTES PERCENT AUTO 9.0 % (2.0-14.0); NEUTROPHILS ABSOLUTE AUTO 4.31 K/uL (1.40-7.00); NEUTROPHILS PERCENT AUTO 46.3 % (45.0-80.0); PLATELET COUNT,PLT 270 K/uL (150-350); RED BLOOD CELL COUNT 3.94 M/uL (4.33-5.41); RED CELL DISTRIBUTION WIDTH 16.3 % (11.2-14.1); WHITE BLOOD CELL COUNT,WBC 9.3 K/uL (4.0-10.2)
[2025-01-01] MEDS: Sodium Chloride 0.9% 10 ML Syringe FLUSH PRN (00:34)
[2025-01-01] MEDS: Furosemide 40 MG/4 ML VIAL IVPUSH ONE (00:34)
[2025-01-01 00:47] LABS: ALANINE AMINOTRANSFERASE,ALT 59 U/L (12-78); ASPARTATE AMNIOTRANSFERASE,AST 28 U/L (15-37); BILIRUBIN TOTAL 0.6 mg/dL (0.2-1.0); BLOOD UREA NITROGEN,BUN 27 mg/dL (7-18); CARBON DIOXIDE,CO2 28.3 mmol/L (21.0-32.0); CHLORIDE,CL 107 mmol/L (98-107); CREATININE 1.62 mg/dL (0.51-1.17); ESTIMATED GFR 43 mL/min (>=60); GLUCOSE RANDOM 134 mg/dL (70-99); POTASSIUM,K 3.6 mmol/L (3.5-5.1); PROTEIN TOTAL,TP 7.5 g/dL (6.4-8.2); SODIUM,NA 144 mmol/L (136-145)
[2025-01-01 01:27] LABS: INR 1.2 (0.9-1.1)
[2025-01-01] MEDS: fentaNYL 50 MCG/HR Transdermal Patch TRDERM SCH ×2 (02:15→10:26)
[2025-01-01] MEDS: Cyanocobalamin (Vitamin B12) 1,000 MCG Tab PO SCH (07:54)
[2025-01-01 08:10] LABS: ALANINE AMINOTRANSFERASE,ALT 55.0 U/L (12-78); ASPARTATE AMNIOTRANSFERASE,AST 21.0 U/L (15-37); BILIRUBIN TOTAL 0.7 mg/dL (0.2-1.0); BLOOD UREA NITROGEN,BUN 24.0 mg/dL (7-18); CARBON DIOXIDE,CO2 31.6 mmol/L (21.0-32.0); CHLORIDE,CL 105.0 mmol/L (98-107); CREATININE 1.54 mg/dL (0.51-1.17); EST CRCL DRUG DOSING (CG) 38.86 mL/min; ESTIMATED GFR 46.0 mL/min (>=60); GLUCOSE RANDOM 104.0 mg/dL (70-99); POTASSIUM,K 3.6 mmol/L (3.5-5.1); PROTEIN TOTAL,TP 7.4 g/dL (6.4-8.2); SODIUM,NA 145.0 mmol/L (136-145)
[2025-01-02 08:09] VITALS: BP 124/87; PULSE 99
[2025-01-02 08:36] LABS: BASOPHILS ABSOLUTE AUTO 0.05 K/uL (0.00-0.20); BASOPHILS PERCENT AUTO 0.6 % (0.0-2.0); EOSINOPHILS ABSOLUTE AUTO 0.53 K/uL (0.00-0.50); EOSINOPHILS PERCENT AUTO 6.5 % (0.0-5.0); IMMATURE GRAN ABSOLUTE AUTO 0.01 10^3/uL (0.00-0.04); IMMATURE GRAN PERCENT AUTO 0.1 % (0.0-0.4); LYMPHOCYTES ABSOLUTE AUTO 1.84 K/uL (0.50-3.50); LYMPHOCYTES PERCENT AUTO 22.5 % (10.0-50.0); MONOCYTES ABSOLUTE AUTO 0.83 K/uL (0.00-1.00); MONOCYTES PERCENT AUTO 10.2 % (2.0-14.0); NEUTROPHILS ABSOLUTE AUTO 4.91 K/uL (1.40-7.00); NEUTROPHILS PERCENT AUTO 60.1 % (45.0-80.0); PLATELET COUNT,PLT 233 K/uL (150-350); RED BLOOD CELL COUNT 4.02 M/uL (4.33-5.41); RED CELL DISTRIBUTION WIDTH 16.1 % (11.2-14.1); WHITE BLOOD CELL COUNT,WBC 8.2 K/uL (4.0-10.2)
[2025-01-02 09:14] LABS: ALANINE AMINOTRANSFERASE,ALT 46.0 U/L (12-78); ASPARTATE AMNIOTRANSFERASE,AST 16.0 U/L (15-37); BILIRUBIN TOTAL 1.1 mg/dL (0.2-1.0); BLOOD UREA NITROGEN,BUN 20.0 mg/dL (7-18); CARBON DIOXIDE,CO2 31.1 mmol/L (21.0-32.0); CHLORIDE,CL 104.0 mmol/L (98-107); CREATININE 1.37 mg/dL (0.51-1.17); EST CRCL DRUG DOSING (CG) 43.69 mL/min; GLUCOSE RANDOM 132.0 mg/dL (70-99); POTASSIUM,K 3.1 mmol/L (3.5-5.1); PRO B-TYPE NATRIUR PEPT,BNPPRO 7234.0 pg/mL (0-125); PROTEIN TOTAL,TP 7.0 g/dL (6.4-8.2); SODIUM,NA 144.0 mmol/L (136-145)
[2025-01-02 09:18] LABS: ESTIMATED GFR 53.0 mL/min (>=60)
[2025-01-02] MEDS: Potassium Bicarbonate/Cit Ac 20 MEQ Effervescent Tab PO ONE (10:13)
== END 2025-01-02 10:30 | disposition home or self-care (01) | DRG 291 ==
LOC: LL.ED 23:54 → LL.MS 01-01 01:11
PROVIDERS: ADMIT Physician Assistant; ATTEND Physician Assistant
DX: I11.0 Hypertensive heart disease with heart failure (principal); I50.22 Chronic systolic (congestive) heart failure; I13.0 Hypertensive heart and chronic kidney disease with heart failure and stage 1 through stage 4 chronic kidney disease, or unspecified chronic kidney disease; I50.21 Acute systolic (congestive) heart failure; Z88.1 Allergy status to other antibiotic agents; Z88.5 Allergy status to narcotic agent; I25.10 Atherosclerotic heart disease of native coronary artery without angina pectoris; J44.9 Chronic obstructive pulmonary disease, unspecified; F32.A Depression, unspecified; F41.9 Anxiety disorder, unspecified; H91.90 Unspecified hearing loss, unspecified ear; J43.1 Panlobular emphysema; E78.00 Pure hypercholesterolemia, unspecified; N40.0 Benign prostatic hyperplasia without lower urinary tract symptoms; N18.32 Chronic kidney disease, stage 3b; M19.90 Unspecified osteoarthritis, unspecified site; M54.9 Dorsalgia, unspecified; G89.29 Other chronic pain; I25.2 Old myocardial infarction; Z86.73 Personal history of transient ischemic attack (TIA), and cerebral infarction without residual deficits; Z98.890 Other specified postprocedural states; Z88.8 Allergy status to other drugs, medicaments and biological substances; Z79.82 Long term (current) use of aspirin; Z95.5 Presence of coronary angioplasty implant and graft; Z79.899 Other long term (current) drug therapy; Z98.49 Cataract extraction status, unspecified eye; Z90.49 Acquired absence of other specified parts of digestive tract; Z90.79 Acquired absence of other genital organ(s); Z87.891 Personal history of nicotine dependence
CPT/HCPCS: 36415; 71046; 80053; 83880; 84484; 85025; 85379; 85610; 87426-QW; 93005; 96374; 99285-25; A9270-GY; C1889; J1938